=== PATIENT | female | born 1945 | race Caucasian/White ===

== ENCOUNTER 2017-04-07 06:56 | Outpatient (CLI) | payer MEDICARE, OTHER ==
--- NOTE | 2017-04-07 14:32 | RAD ---
PA AND LATERAL CHEST: History: Dyspnea. Comparison: 08-12-16 FINDINGS: Heart size is enlarged. Pacemaker is present. The lungs are clear of infiltrates. There are no signs of failure. IMPRESSION: Cardiomegaly. Transvenous pacemaker in place. POS: [facility]
== END 2017-04-07 06:57 | disposition home or self-care (01) ==
LOC: RAD 06:56
PROVIDERS: ATTEND Internal Medicine Critical Care Medicine
DX: R06.00 Dyspnea, unspecified (principal); I51.7 Cardiomegaly; Z95.0 Presence of cardiac pacemaker
CPT/HCPCS: 71020

== ENCOUNTER 2017-11-22 07:49 | Outpatient (CLI) | payer MEDICARE | END 2017-11-22 07:50 | disposition home or self-care (01) | LOC: BICMAMMO 07:49 | PROVIDERS: ATTEND Family Medicine | DX: M81.0 Age-related osteoporosis without current pathological fracture (principal); N95.9 Unspecified menopausal and perimenopausal disorder | CPT/HCPCS: 77080 ==

== ENCOUNTER 2019-05-18 15:44 | Observation (INO) | payer MEDICARE ==
--- NOTE | 2019-05-18 16:11 | RAD ---
TWO VIEW CHEST: 05/18/19 INDICATION: Shortness of breath. Weakness. COMPARISON: 04/07/17. Mild cardiomegaly is stable. Pacemaker leads were unchanged. The lung reno appear clear. No infiltr ate or vascular congestion. Subluxation of the right humeral head with widening of the subacromial sp jono. Degenerative changes at both shoulders. Degenerative changes in the spine. IMPRESSION: No acute lung process. POS: [facility]
[2019-05-18 16:58] LABS: #Basophils 0.1 thou/uL (0.0-0.2); #Eosinphils 0.1 thou/uL (0.0-0.7); #Lymphocytes 2.7 thou/uL (1.20-3.40); #Monocytes 0.5 thou/uL (0.11-0.59); #Neutrophils 6.1 thou/uL (1.40-6.50); %Basophils 0.7 % (0.0-1.0); %Eosinophils 1.6 % (0.0-10.0); %Lymphocytes 28.6 % (21.0-51.0); %Monocytes 5.1 % (0.0-10.0); %Neutrophils 64.1 % (42.0-75.0); Hemoglobin 13.2 g/dL (12.0-16.0); Mean Corpuscular HGB CONC 34.1 g/dL (32.0-36.0); Mean Corpuscular Hemoglobin 30.6 pg (27.0-31.0); Mean Corpuscular Volume 89.5 fL (78.0-98.0); Mean Platelet Volume 8.8 fL (7.4-10.4); Platelet Count 248 thou/uL (130-400); RBC Distribution Width 12.8 % (11.5-14.5); Red Blood Cell (RBC) Count 4.31 mill/uL (4.20-5.40); White Blood Cell (WBC) Count 9.6 thou/uL (4.8-10.8)
[2019-05-18 17:20] LABS: ALT (SGPT) 9 U/L (8-55); AST (SGOT) 25 U/L (5-34); Albumin 3.8 g/dL (3.4-4.8); Alkaline Phosphatase 127 U/L (40-110); Anion Gap 14 mmol/L (10-20); BUN (Urea Nitrogen) 10 mg/dL (9.8-20.1); Bilirubin, Total 1.7 mg/dL (0.2-1.2); Calc. Creatinine Clearance 0 mL/min (70-130); Calcium 9.1 mg/dL (7.8-10.44); Carbon Dioxide 26 mmol/L (23-31); Chloride 102 mmol/L (98-107); Estimated GFR-MDRD 79; Globulin 2.8 g/dL (2.4-3.5); Glucose 173 mg/dL (83-110); Potassium 3.8 mmol/L (3.5-5.1); Protein, Total 6.6 g/dL (6.0-8.3); Sodium 138 mmol/L (136-145)
[2019-05-18 17:41] LABS: CKMB 1.1 ng/mL (0-6.6)
[2019-05-18] MEDS ORDERED: Aspirin Chewable 81 MG TAB ONE (18:22)
--- NOTE | 2019-05-18 19:37 | PDOC.FPRHP ---
- History of Present Illness Chief Complaint: CP r/o History of Present Illness: Pt is a 74 yo female with PMH DM, A-fib with pacemaker followed by [facility], Diastolic/Systolic cardiac dysfunction, HLD, sleep apnea, depression, hypothyroidism who presents for a chest pain r/o, multiple week history of fatigue, malaise. She is a direct admission from [facility]. In regards to her chest pain it is dull in nature, pinpointed to her L side but states she has similar pain normally present on her R back. She denies diaphoresis, n/v, jaw pain, radiation down her R arm. She has history of prior OK. Her weigh and charge worker is Dr. Ruano who follows her for a-fib requiring a pacemaker. She did not have any pain with her initial OK. In regards to her fatigue, malaise she has been experiencing symptoms since she started jardiance about one month ago. She had increased urination and decided to d/c jardiance due to her symptoms. Her malaise/fatigue nor urinary frequency did not improve with d/c jardiance. She denies dysuria, hematuria. She states her BG has been decently controlled with home checks. - Allergies/Adverse Reactions Allergies Allergy/AdvReac Type Severity Reaction Status Date / Time adhesive Allergy Verified 11/18/16 11:16 fire ant Allergy Verified 05/18/19 20:39 Sulfa (Sulfonamide Allergy Verified 11/18/16 11:16 Antibiotics) - Home Medications Medication Instructions Recorded Confirmed Type Allopurinol 300 mg PO DAILY 07/11/16 05/18/19 History Apixaban [Eliquis] 5 mg PO BID #60 tablet 07/17/16 05/18/19 Rx Furosemide [Lasix] 40 mg PO 0900,1400 #60 tab 08/30/16 05/18/19 Rx Potassium Chloride [Klor-Con] 20 meq PO BID 10/08/16 05/18/19 History Gabapentin 300 mg PO HS 10/09/16 05/18/19 History Insulin Detemir 100 UNITS/ML 15 units SC BID 11/18/16 05/18/19 History [Levemir] Acetaminophen [Tylenol] 650 mg PO PRN PRN 05/18/19 05/18/19 History Carvedilol [Coreg] 6.25 mg PO BID 05/18/19 05/18/19 History Cholecalciferol (Vitamin D3) 5,000 unit PO DAILY 05/18/19 05/18/19 History [Vitamin D] Empagliflozin [Jardiance] 10 mg PO DAILY 05/18/19 05/18/19 History Ezetimibe [Zetia] 10 mg PO DAILY 05/18/19 05/18/19 History Oxybutynin [Ditropan] 5 mg PO DAILY 05/18/19 05/18/19 History PARoxetine HCl [Paxil] 40 mg PO DAILY 05/18/19 05/18/19 History Ranitidine HCl 150 mg PO DAILY PRN 05/18/19 05/18/19 History Sacubitril/Valsartan [Entresto 97 1 tab PO BID 05/18/19 05/18/19 History mg-103 mg Tablet] traMADol HCl [Tramadol HCl ER] 200 mg PO HS 05/18/19 05/18/19 History - History PMHx: DM, A-fib w/ pacemaker, Hypothyroid, Combined systolic/diastolic HF, sleep apnea, depression, HLD PSHx: Pacemaker FHx: non-contributory Social: denies tobacco, alcohol - Review of Systems General: denies: fever/chills, weight/appetite/sleep changes Respiratory: denies: cough, congestion Cardiovascular: reports: chest pain. denies: palpitation Gastrointestinal: denies: nausea, vomiting, diarrhea, constipation Genitourinary: reports: polyuria. denies: incontinence, dysuria Skin: denies: rashes, lesions Neurological: denies: numbness, syncope - Vital signs BP: 135/74 HR: 74 RR: 16 Tmax: 97.5 Pox: 100% on RA Wt: 101 kg - Physical Exam Constitutional: NAD, awake, alert and oriented Neck: supple, FROM Chest: no-tender to palpation, no lesions Heart: RRR, normal S1/S2, no murmurs/rubs/gallops Lungs: CTAB, no respiratory distress, good air movement Abdomen: soft, bowel sounds present -Abdomen: suprapubic tenderness Musculoskeletal: normal structure, normal tone Neurological: no focal deficit, CN II-XII intact Skin: no rash/lesions, capillary refill <2 seconds FMR H&P: Results - Labs Result Diagrams: 05/18/19 16:48 05/18/19 16:48 Lab results: WBC 9.6 thou/uL (4.8-10.8) 05/18/19 16:48 Hgb 13.2 g/dL (12.0-16.0) 05/18/19 16:48 Hct 38.6 % (36.0-47.0) 05/18/19 16:48 MCV 89.5 fL (78.0-98.0) 05/18/19 16:48 Plt Count 248 thou/uL (130-400) 05/18/19 16:48 Neutrophils % 64.1 % (42.0-75.0) 05/18/19 16:48 Sodium 138 mmol/L (136-145) 05/18/19 16:48 Potassium 3.8 mmol/L (3.5-5.1) 05/18/19 16:48 Chloride 102 mmol/L (98-107) 05/18/19 16:48 Carbon Dioxide 26 mmol/L (23-31) 05/18/19 16:48 BUN 10 mg/dL (9.8-20.1) 05/18/19 16:48 Creatinine 0.72 mg/dL (0.6-1.1) 05/18/19 16:48 Glucose 173 mg/dL (83-110) H 05/18/19 16:48 Calcium 9.1 mg/dL (7.8-10.44) 05/18/19 16:48 Total Bilirubin 1.7 mg/dL (0.2-1.2) H 05/18/19 16:48 AST 25 U/L (5-34) 05/18/19 16:48 ALT 9 U/L (8-55) 05/18/19 16:48 Alkaline Phosphatase 127 U/L (40-110) H 05/18/19 16:48 CK-MB (CK-2) 1.1 ng/mL (0-6.6) 05/18/19 16:48 B-Natriuretic Peptide 99.1 pg/mL (0-100) 05/18/19 16:48 Serum Total Protein 6.6 g/dL (6.0-8.3) 05/18/19 16:48 Albumin 3.8 g/dL (3.4-4.8) 12/26/19 16:48 - EKG Interpretation EKG: Ventricular paced - Radiology Interpretation Chest x-ray Status: image reviewed by me, report reviewed by me (No acute findings) FMR H&P: A/P - Problem List (1) Atrial fibrillation Current Visit: Yes Status: Acute Code(s): I48.91 - UNSPECIFIED ATRIAL FIBRILLATION (2) DMII (diabetes mellitus, type 2) Current Visit: No Status: Chronic Qualifiers: 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 use Diabetes mellitus complication status: with kidney complications Diabetes mellitus complication detail: with chronic kidney disease Chronic kidney disease stage : stage 2 (mild) Qualified Code(s): E11.22 - Type 2 diabetes mellitus with diabetic chronic kidney disease; N18.2 - Chronic kidney disease, stage 2 (mild) ; 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9 - HYPOTHYROIDISM, UNSPECIFIED Qualifiers: Hypothyroidism type: unspecified Qualified Code(s): E03.9 - Hypothyroidism , unspecified (7) Neuropathy Current Visit: No Status: Chronic Code(s): G62.9 - POLYNEUROPATHY, UNSPECIFIED (8) Systolic and diastolic CHF, chronic Current Visit: No Status: Chronic Code(s): I50.42 - CHRONIC COMBINED SYSTOLIC AND DIASTOLIC HRT FAIL (9) Atypical chest pain Current Visit: Yes Status: Acute Code(s): R07.89 - OTHER CHEST PAIN - Plan # Atypical Chest Pain Chest pain was subtle in nature, similar to pain she regularly has on L back, pinpointed to L chest, w/o diaphoresis or radiation. Pt seen by Dr. Ruano with a recent echocardiogram in 12/2018 revealing EF 40-45% per pt. She was started on entresto for HF. There was concern for acute heart failure but pt's BNP is 99. - trend trops, neg x 2 with downward trend - consider echo on morning # Malaise/Fatigue # Urinary Frequency Consider etiology from jardiance use causing possible urinary tract infection. Other etiologies include hypothyroid, OK. - pending UA - trops as above - pending TSH, T3, T4 # Hypothyroid - no medications at this time, pending labs above # Combined Systolic, Diastolic Cardiac Dysfunction - continue home meds - BNP 99 # DM II - held jardiance as she has not taken in a week - SSI - continue leveemir # HTN - continue home meds # HLD - Continue home meds # Hx of Anemia Hgb 13.2 # A-fib - continue home meds Fluids: PO Diet: HH VTE: home eliquis Dispo: < 48 hour stay FMR H&P: Upper Level - Plan Date/Time: 05/18/191936 ILincoln MD, have evaluated this patient and agree with findings/plan as outlined by data analysis intern resident. Pertinent changes/additions are listed here. Rebeca Howell is a 74 year old F with a PMH of CHF (Echo 2017 showed EF 50- 55%), A fib, DM2, HTN, Hypothyroidism, and APARNA who presented to the ED with c/o fluid overload sent to ED from clinic. States that earlier in the day, she developed some chest discomfort, substernal, occurring at rest, resolved on its own. Also endorses weakness/fatigue over the last couple weeks, leading to a fall. Denies any chest pain, palpitations, LOC before or after fall. Forget to take medications yesterday. Denies any hx of lung disease. Denies any fever , chills, dyspnea, n/v, abdominal pain. States that she was prescribed jardiance prior to onset of symptoms over the last couple weeks and she stopped taking it a week ago. Has noticed increased urine output since that time. In the ED, vitals were stable and wnl. BNP was 99, EKG showed V paced rhythm. Trop was 0.03. CBC and CMP wnl. CXR showed no acute findings. On exam, patient had clear lungs, no lower extremity edema. RRR no murmurs. Patient admitted to obs tele for atypical chest pain r/o ACS. Will trend trops. Continue home medications for chronic medical problems. Checking UA as UTI could be contributing to majority of symptoms. Checking thyroid panel. Anticipate hospital stay <48 hrs. Please see data analysis intern note above for full H&P, which I have reviewed and agree with.
[2019-05-18] MEDS ORDERED: Acetaminophen 325 MG TAB PO PRN (20:05)
[2019-05-18] MEDS ORDERED: Ondansetron PF 4 MG/2 ML Vial IVP PRN (20:05)
[2019-05-18] MEDS ORDERED: Ondansetron ODT 4 MG TAB SL PRN (20:05)
[2019-05-18 20:32] LABS: Troponin I 0.012 ng/mL (< 0.028)
[2019-05-18 20:52] VITALS: BMI 39.4
[2019-05-18] MEDS ORDERED: Non-Formulary Item 1 EACH (Insulin Detemir 100 Units/Ml [Levemir] 16 UNITS) SC SCH (21:00)
[2019-05-18] MEDS ORDERED: Ezetimibe 10 MG TAB PO SCH (21:00)
[2019-05-18] MEDS ORDERED: Gabapentin 300 MG CAP PO SCH (21:00)
--- NOTE | 2019-05-18 21:26 | PDOC.BPN ---
Addendum - Attending - Attending Attestation Date/Time: 05/18/192124 I personally evaluated the patient and discussed the management with Dr. Vera and Vladimir. H&P is pending. I agree with the History, Examination, Assessment and Plan as discussed. Cardiac eval for fatigue and FLORES as well thyroid.
[2019-05-18 21:28] LABS: Free T4 (Free Thyroxine) 1.12 ng/dL (0.70-1.48)
[2019-05-18] MEDS: Carvedilol 6.25 MG TAB PO SCH (21:42)
[2019-05-18] MEDS: Apixaban 5 MG TAB PO SCH (21:43)
[2019-05-18] MEDS: Insulin Glargine 16 UNITS in Pre-Filled Syringe 1 EACH SC SCH (21:43)
[2019-05-18] MEDS ORDERED: Potassium Chloride 20 MEQ TAB PO SCH (21:45)
[2019-05-18] MEDS ORDERED: HumaLOG 300 UNITS/3 ML VIAL SC PRN (22:49)
[2019-05-18] MEDS ORDERED: Dextrose 50% Abboject 50 ML SYRINGE SLOW IVP PRN (22:49)
[2019-05-18] MEDS ORDERED: Dextrose 5% in Water 1,000 ML IV PRN (22:49)
[2019-05-18 22:56] LABS: Bacteria/HPF 4+ HPF (None Seen); Bilirubin Negative (Negative); Blood, Urine Negative (Negative); Clarity Turbid (Clear); Glucose, Urine (Dipstick) Normal (Negative); Leukocyte 75 Leu/uL (Negative); Nitrite Negative (Negative); Protein, Urine (Dipstick) 20 mg/dL (Neg-Trace); Urobilinogen Normal mg/dL (Less than 2)
[2019-05-18 23:31] LABS: Troponin I Less than 0.010 ng/mL (< 0.028)
[2019-05-19 05:29] LABS: #Basophils 0.1 thou/uL (0.0-0.2); #Eosinphils 0.2 thou/uL (0.0-0.7); #Lymphocytes 2.9 thou/uL (1.20-3.40); #Monocytes 0.6 thou/uL (0.11-0.59); %Basophils 0.9 % (0.0-1.0); %Eosinophils 2.1 % (0.0-10.0); %Lymphocytes 37.9 % (21.0-51.0); %Monocytes 7.1 % (0.0-10.0); Hemoglobin 11.9 g/dL (12.0-16.0); Mean Corpuscular HGB CONC 34.7 g/dL (32.0-36.0); Mean Corpuscular Hemoglobin 31.1 pg (27.0-31.0); Mean Corpuscular Volume 89.6 fL (78.0-98.0); Mean Platelet Volume 8.6 fL (7.4-10.4); Platelet Count 211 thou/uL (130-400); RBC Distribution Width 12.9 % (11.5-14.5); Red Blood Cell (RBC) Count 3.84 mill/uL (4.20-5.40); White Blood Cell (WBC) Count 7.8 thou/uL (4.8-10.8)
[2019-05-19 05:44] LABS: Anion Gap 11 mmol/L (10-20); BUN (Urea Nitrogen) 13 mg/dL (9.8-20.1); Calc. Creatinine Clearance 105 mL/min (70-130); Calcium 8.6 mg/dL (7.8-10.44); Carbon Dioxide 27 mmol/L (23-31); Chloride 102 mmol/L (98-107); Estimated GFR-MDRD 73; Glucose 205 mg/dL (83-110); Potassium 3.2 mmol/L (3.5-5.1); Sodium 137 mmol/L (136-145)
--- NOTE | 2019-05-19 05:51 | PDOC.FM ---
- Subjective Subjective: Pt denies any further chest pain. Pt states she has lower abdominal pain. Denies dysuria or hematuria - Objective MAR Reviewed: Yes Vital Signs & Weight: Vital Signs (12 hours) Temp Pulse Resp BP BP BP BP 05/19/19 03:55 98.1 F 72 19 130/61 05/18/19 21:42 152/78 H 05/18/19 20:40 71 152/78 H 134/64 144/69 H 05/18/19 19:45 98.3 F 64 17 180/87 H Pulse Ox 05/19/19 03:55 96 05/18/19 21:42 05/18/19 20:40 05/18/19 19:45 99 Weight Weight 107.501 kg I&O: 05/17/19 05/18/19 05/19/19 06:59 06:59 06:59 Intake Total 240 Output Total 300 Balance -60 Result Diagrams: 05/19/19 05:08 05/19/19 05:08 Phys Exam - Physical Examination Constitutional: NAD HEENT: PERRLA, moist MMs Neck: no nodes, no JVD, supple, full ROM Respiratory: no wheezing, no rales, no rhonchi, clear to auscultation bilateral Cardiovascular: RRR, no significant murmur, no rub Gastrointestinal: soft, no distention, positive bowel sounds suprapubic tenderness to palpation. Neurological: non-focal, moves all 4 limbs Psychiatric: normal affect, A&O x 3 Skin: no rash, normal turgor, cap refill <2 seconds Dx/Plan (1) UTI (urinary tract infection) Status: Acute Qualifiers: Urinary tract infection type: acute cystitis (2) Atypical chest pain Code(s): R07.89 - OTHER CHEST PAIN Status: Acute (3) DMII (diabetes mellitus, type 2) Status: Chronic Qualifiers: Diabetes mellitus correction insulin use: with slate mixer use Diabetes mellitus complication status: with kidney complications Diabetes mellitus complication detail: with chronic kidney disease Chronic kidney disease stage : stage 2 (mild) Qualified Code(s): E11.22 - Type 2 diabetes mellitus with diabetic chronic kidney disease; N18.2 - Chronic kidney disease, stage 2 (mild) ; Z79.4 - MCC (current) use of insulin (4) HTN (hypertension) Code(s): I10 - ESSENTIAL (PRIMARY) HYPERTENSION Status: Chronic Qualifiers: Hypertension type: essential hypertension Qualified Code(s): I10 - Essential (primary) hypertension (5) Hypothyroidism Code(s): E03.9 - HYPOTHYROIDISM, UNSPECIFIED Status: Chronic Qualifiers: Hypothyroidism type: unspecified Qualified Code(s): E03.9 - Hypothyroidism , unspecified (6) Systolic and diastolic CHF, chronic Code(s): I50.42 - CHRONIC COMBINED SYSTOLIC AND DIASTOLIC HRT FAIL Status: Chronic - Plan Plan: # Atypical Chest Pain, improved. Chest pain was subtle in nature, similar to pain she regularly has on L back, pinpointed to L chest, w/o diaphoresis or radiation. Pt seen by Dr. Ruano with a recent echocardiogram in 12/2018 revealing EF 40-45% per pt. She was started on entresto for HF. There was concern for acute heart failure but pt's BNP is 99. - trend trops, neg x 3 with downward trend # Malaise/Fatigue # Urinary Frequency and suprapubic tenderness 2/2 UTI Consider etiology from jardiance use causing possible urinary tract infection. Other etiologies include hypothyroid, MS. - UA: many squamous cells, but leuk esterase +, nitirite -. Treated with 1 g Rocephin IVPB. - trops as above - Normal thyroid studies. TSH, T3, T4 # Hypothyroid - no medications at this time, normal TSH, T4 and T3. # Combined Systolic, Diastolic Cardiac Dysfunction - continue home meds - BNP 99 # DM II - held jardiance as she has not taken in a week - SSI - continue levemir # HTN - continue home meds # HLD - Continue home meds # Hx of Anemia Hgb 13.2 # A-fib - continue home meds Fluids: PO Diet: HH VTE: home eliquis Dispo: < 48 hour stay Addendum - Attending - Attending Attestation Date/Time: 05/19/19 1019 I personally evaluated the patient and discussed the management with Dr. Butt. I agree with the History, Examination, Assessment and Plan documented above with any addition or exceptions noted below. The patient is has suprapubic tenderness and abnormal UA. Treating uti with rocephin and will transition to po antibiotics on discharge. She is chest pain free. Will f/u with cardiology outpt.
[2019-05-19] MEDS ORDERED: cefTRIAXone\\ROCEPHIN 1 GM in Sodium Chloride 0.9% 100 ML IVPB SCH (07:46)
[2019-05-19 08:20] VITALS: TEMP 97.9
[2019-05-19] MEDS: Insulin Glargine 16 UNITS in Pre-Filled Syringe 1 EACH SC SCH (08:52)
[2019-05-19] MEDS: Apixaban 5 MG TAB PO SCH (08:53)
[2019-05-19] MEDS: Carvedilol 6.25 MG TAB PO SCH (08:53)
[2019-05-19] MEDS ORDERED: Oxybutynin 5 MG TAB PO SCH (09:00)
[2019-05-19] MEDS ORDERED: Potassium Chloride 20 MEQ TAB PO SCH (09:00)
[2019-05-19] MEDS ORDERED: Tramadol Hcl [Tramadol Hcl Er] 200 MG PO SCH (09:00)
[2019-05-19] MEDS ORDERED: Aspirin 325 mg Enteric Coated Tablet PO SCH (09:00)
[2019-05-19] MEDS ORDERED: FLU VACC TS2019-20(65YR UP)/PF 180 MCG/0.5 ML SYRINGE IM ONE (09:00)
[2019-05-19] MEDS ORDERED: Furosemide 40 MG TAB PO SCH (09:00)
[2019-05-19] MEDS ORDERED: Sacubitril 49 MG/Valsartan 51 MG TABLET PO SCH ×2 (09:00)
[2019-05-19] MEDS ORDERED: traMADol HCl 50 MG TAB PO SCH (09:00)
[2019-05-19] MEDS ORDERED: PARoxetine 20 MG TAB PO SCH (09:00)
[2019-05-19] MEDS ORDERED: Allopurinol 300 MG TAB PO SCH (09:00)
[2019-05-19 10:35] VITALS: BP 132/60
--- NOTE | 2019-05-19 11:48 | DIS ---
DATE OF ADMISSION: 05/18/2019 DATE OF DISCHARGE: 05/19/2019 RESIDENT: Lacey Butt DO Admitting attending: Dr. Subramanian DISCHARGE ATTENDING: Susie Ratliff MD CONSULTS: None. PROCEDURES: None. DIAGNOSES: 1. Atypical chest pain. 2. Malaise/fatigue. 3. Acute urinary tract infection. 4. Hypothyroidism. 5. Combined systolic and diastolic heart failure. 6. Diabetes mellitus, type 2. 7. Hypertension. 8. Hyperlipidemia. 9. History of anemia. 10. Atrial fibrillation. DISCHARGE MEDICATIONS: 1. Keflex 500 mg p.o. q.12 hours for 5 days. 2. Tylenol 650 mg p.o. p.r.n. 3. Allopurinol 300 mg p.o. daily. 4. Eliquis 5 mg p.o. b.i.d. 5. Aspirin 325 p.o. daily. 6. Coreg 6.25 mg p.o. b.i.d. 7. Vitamin D 5000 units p.o. daily. 8. Jardiance 10 mg p.o. daily. 9. Zetia 10 mg p.o. daily. 10. Lasix 40 mg p.o. b.i.d. 11. Gabapentin 300 mg p.o. at bedtime. 12. Humalog 10 units subcu b.i.d. a.c. 13. Detemir 15 units subcu b.i.d. 14. Oxybutynin 5 mg p.o. daily. 15. Paxil 40 mg p.o. daily. 16. Klor-Con 20 mEq p.o. b.i.d. 17. Ranitidine 150 mg p.o. daily p.r.n. 18. Entresto 1 tablet p.o. b.i.d. 19. Tramadol 200 mg p.o. at bedtime. No discontinued medications. HISTORY OF PRESENT ILLNESS AND HOSPITAL COURSE: Ms. Howell is a 74-year-old female with a history of diastolic and systolic heart failure, status post pacemaker placement; diabetes mellitus type 2 with neuropathy; hypothyroidism; and atrial fibrillation; who presented to [facility] on 05/18 with atypical chest pain and feeling very weak and for the last two weeks, that has gradually worsened. She was sent over to [place] for further evaluation and treatment. The patient's workup was negative for fluid overload in the setting of heart failure as well as acute coronary syndrome. The patient's troponins were initially 0.030, was downtrended to less than 0.010. Chest x-ray showed no acute cardiopulmonary findings. EKG with biventricular pace, rate in the 70s. Creatinine was 0.72, TSH was 1.7, free T4 of 1.12, free T3 of 2.44, all within normal limits. The patient's urine was leukocyte esterase positive with many squamous cells. She also has suprapubic tenderness on exam with urinary frequency. She was treated with 1 g of Rocephin while at the hospital and sent home with 5 days of b.i.d. Keflex 500 mg to take outpatient. The patient's weakness is thought to be from the acute cystitis and we will follow up outpatient to see if she gained her strength back after being treated with antibiotic therapy. The patient's dental assistant is Dr. Ruano and it is our recommendation that she follow up with Dr. Ruano outpatient for possible stress test and further cardiac workup. The patient did not have any further chest pain once admitted to the hospital. DISPOSITION: The patient was stable upon discharge back home. DISCHARGE INSTRUCTIONS: 1. Location: To home. 2. Diet: Heart healthy and consistent carb with fluid restriction of less than 1800 mL a day. 3. Activity: As tolerated. 4. Followup: Follow up with primary care physician, Dr. Parikh at [facility] in 1 week's time and follow up with Dr. Ruano, dental assistant in 10 days for further cardiac workup. Job ID: [id number] [facility]
== END 2019-05-19 11:30 | disposition home or self-care (01) ==
LOC: ERS 15:44 → 2SW 19:45
PROVIDERS: ADMIT Family Medicine; ATTEND Family Medicine
DX: R07.89 Other chest pain (principal); I13.0 Hypertensive heart and chronic kidney disease with heart failure and stage 1 through stage 4 chronic kidney disease, or unspecified chronic kidney disease; E11.22 Type 2 diabetes mellitus with diabetic chronic kidney disease; N18.2 Chronic kidney disease, stage 2 (mild); I50.40 Unspecified combined systolic (congestive) and diastolic (congestive) heart failure; I48.91 Unspecified atrial fibrillation; E03.9 Hypothyroidism, unspecified; E78.5 Hyperlipidemia, unspecified; F32.9 Major depressive disorder, single episode, unspecified; G47.30 Sleep apnea, unspecified; M10.9 Gout, unspecified; N39.0 Urinary tract infection, site not specified; Z79.01 Long term (current) use of anticoagulants; Z79.4 Long term (current) use of insulin; Z79.82 Long term (current) use of aspirin; Z79.899 Other long term (current) drug therapy; Z88.2 Allergy status to sulfonamides; Z91.038 Other insect allergy status; Z91.048 Other nonmedicinal substance allergy status; Z95.0 Presence of cardiac pacemaker
CPT/HCPCS: 36415; 36416; 71046; 80048; 80053; 81001; 82010; 82553; 83880; 84439; 84443; 84481; 84484; 85025; 87086; 93005; 94760; 96365; G0378; J0696; J1815; J3490

== ENCOUNTER 2019-08-17 12:30 | Inpatient (IN) | payer MEDICARE ==
[2019-08-17] MEDS ORDERED: Ondansetron ODT 4 MG TAB ONE (12:38)
[2019-08-17 13:05] LABS: #Basophils 0.1 thou/uL (0.0-0.2); #Eosinphils 0.2 thou/uL (0.0-0.7); #Lymphocytes 3.5 thou/uL (1.20-3.40); #Monocytes 0.5 thou/uL (0.11-0.59); #Neutrophils 7.4 thou/uL (1.40-6.50); %Basophils 0.8 % (0.0-1.0); %Eosinophils 1.4 % (0.0-10.0); %Lymphocytes 30.2 % (21.0-51.0); %Monocytes 4.6 % (0.0-10.0); %Neutrophils 63.1 % (42.0-75.0); Hemoglobin 15.2 g/dL (12.0-16.0); Mean Corpuscular HGB CONC 33.7 g/dL (32.0-36.0); Mean Corpuscular Hemoglobin 30.1 pg (27.0-31.0); Mean Corpuscular Volume 89.3 fL (78.0-98.0); Mean Platelet Volume 9.2 fL (7.4-10.4); Platelet Count 287 thou/uL (130-400); RBC Distribution Width 13.5 % (11.5-14.5); Red Blood Cell (RBC) Count 5.06 mill/uL (4.20-5.40); White Blood Cell (WBC) Count 11.7 thou/uL (4.8-10.8)
[2019-08-17 13:24] LABS: ALT (SGPT) 11 U/L (8-55); AST (SGOT) 23 U/L (5-34); Alkaline Phosphatase 149 U/L (40-110); Anion Gap 17 mmol/L (10-20); BUN (Urea Nitrogen) 11 mg/dL (9.8-20.1); Bilirubin, Total 1.2 mg/dL (0.2-1.2); Calc. Creatinine Clearance 0 mL/min (70-130); Calcium 10.1 mg/dL (7.8-10.44); Carbon Dioxide 28 mmol/L (23-31); Chloride 98 mmol/L (98-107); Estimated GFR-MDRD 59; Globulin 3.8 g/dL (2.4-3.5); Glucose 254 mg/dL (83-110); Potassium 3.1 mmol/L (3.5-5.1); Protein, Total 7.8 g/dL (6.0-8.3); Sodium 140 mmol/L (136-145)
--- NOTE | 2019-08-17 13:41 | RAD ---
PORTABLE CHEST: HISTORY: Shortness of breath. COMPARISON: 05/18/2019. FINDINGS: Cardiomegaly again noted with dual-lead pacemaker device. No evidence of focal infiltrate. No evide nce of vascular congestion or edema. No significant effusion. No interval change apparent. IMPRESSION: No acute finding or significant interval change. POS: [facility]
[2019-08-17] MEDS ORDERED: Iopamidol 370 76% 100 ML VIAL ONE (13:44)
[2019-08-17 14:26] LABS: Bilirubin Negative (Negative); Blood, Urine Negative (Negative); Clarity Clear (Clear); Glucose, Urine (Dipstick) Greater than 1000 mg/dL (Negative); Leukocyte Negative Leu/uL (Negative); Nitrite Negative (Negative); Protein, Urine (Dipstick) Negative (Neg-Trace); Urobilinogen Normal mg/dL (Less than 2)
--- NOTE | 2019-08-17 15:01 | CT ---
ABDOMEN AND PELVIC CT SCAN WITH IV CONTRAST: HISTORY: Abdominal pain, shortness of breath, and vomiting. COMPARISON: CT angiogram chest 11/17/2016 and abdominal ultrasound 07/18/2016. FINDINGS: The lung bases appear clear. Small hiatal hernia. The liver appears unremarkable. Several gallston es are noted within the gallbladder without abnormal gallbladder wall thickening or pericholecystic a bnormal fat stranding or ductal dilatation. The patient did have multiple gallstones on the prior 17 ultrasound study. The pancreas, spleen, and adrenal glands appear unremarkable. The kidneys show no evidence for renal hydronephrosis or solid or cystic renal mass. No evidence for large or small bowel obstruction. There are a few scattered colonic diverticulosis without acute diverticulitis. N o CT evidence for acute appendicitis. No abscess or abnormal fluid collection. Previously noted sofia ateral pleural effusions and chest congestion seen on the prior CT scan have resolved. IMPRESSION: 1. Small hiatal hernia. 2. Multiple gallstones without CT evidence for acute cholecystitis. 3. No evidence for other significant acute process. POS: [facility]
--- NOTE | 2019-08-17 15:58 | ULT ---
GALLBLADDER ULTRASOUND: HISTORY: Right upper quadrant and epigastric pain. COMPARISON: 07/18/2016. FINDINGS: Coarse liver echogenicity, evidence for fatty change. The gallbladder demonstrates multiple mobile g allstones with shadowing. No evidence for abnormal gallbladder wall thickening or pericholecystic fl uid. Visualized pancreas and right kidney are unremarkable. IMPRESSION: 1. Multiple cholelithiasis without evidence for acute cholecystitis. 2. Heterogeneous liver echogenicity, evidence for some fatty change. POS: [facility]
--- NOTE | 2019-08-17 16:43 | PDOC.FPRHP ---
- History of Present Illness Chief Complaint: nausea, vomiting, indigestion History of Present Illness: Rebeca Howell is a 74 year old F with a PMH of A fib, HTN, DM2, Hypothyroidism who presented to the ED with a 1-2 day history of indigestion, nausea and a couple episodes of vomiting today. She has been dealing with indigestion over the last 5-6 weeks. She has had decreased appetite over that time and she has lost about 15-20 lbs over the last 5-6 weeks. Normally has RUQ abd pain after eating large meals. She has had problems with indigestion in the past and she had a HIDA scan that was normal about 15 years ago. She has been taken ranitidine which helps. Denies any fever, chills, chest pain, dyspnea, palpitations, sore throat, LE edema. Endorses occasional diarrhea. She has a history of EVELYN but does not use CPAP machine. ED Course: In the ED, she was given 4 mg of zofran and 1 L NS. - Allergies/Adverse Reactions Allergies Allergy/AdvReac Type Severity Reaction Status Date / Time adhesive Allergy Verified 08/12/19 04:42 fire ant Allergy Verified 08/12/19 04:42 Sulfa (Sulfonamide Allergy Verified 08/12/19 04:42 Antibiotics) - Home Medications Medication Instructions Recorded Confirmed Type Allopurinol 300 mg PO DAILY 07/11/16 08/17/19 History Apixaban [Eliquis] 5 mg PO BID #60 tablet 07/17/16 08/17/19 Rx Furosemide [Lasix] 40 mg PO 0900,1400 #60 tab 08/30/16 08/17/19 Rx Potassium Chloride [Klor-Con] 20 meq PO BID 10/08/16 08/17/19 History Gabapentin 300 mg PO HS 10/09/16 08/17/19 History Insulin Detemir 100 UNITS/ML 16 units SC BID 11/18/16 08/17/19 History [Levemir] Carvedilol [Coreg] 6.25 mg PO BID 05/18/19 08/17/19 History Cholecalciferol (Vitamin D3) 5,000 unit PO DAILY 05/18/19 08/17/19 History [Vitamin D] Empagliflozin [Jardiance] 10 mg PO DAILY 05/18/19 08/17/19 History Ezetimibe [Zetia] 10 mg PO DAILY 05/18/19 08/17/19 History Oxybutynin [Ditropan] 5 mg PO DAILY 05/18/19 08/17/19 History PARoxetine HCl [Paxil] 40 mg PO DAILY 05/18/19 08/17/19 History Sacubitril/Valsartan [Entresto 97 1 tab PO BID 05/18/19 08/17/19 History mg-103 mg Tablet] traMADol HCl [Tramadol HCl ER] 200 mg PO HS 05/18/19 08/17/19 History HumaLOG 0 unit SC QID PRN 08/17/19 08/17/19 History - History PMHx: DM, A-fib w/ pacemaker, Hypothyroid, Combined systolic/diastolic HF, sleep apnea, depression, HLD PSHx: Pacemaker in 2017, knee surgeries, tonsillectomy FHx: Mother and father had DM2, HTN, HLD Social: denies tobacco, alcohol, drug use - Review of Systems General: reports: weight/appetite/sleep changes. denies: fever/chills, night sweats, fatigue Eyes: denies: eye pain, vision changes ENT: denies: nasal congestion, rhinorrhea Respiratory: denies: cough, congestion, shortness of breath Cardiovascular: denies: chest pain, palpitation, edema Gastrointestinal: reports: nausea, vomiting, diarrhea, abdominal pain Genitourinary: denies: dysuria, polyuria Skin: denies: rashes, lesions Musculoskeletal: denies: pain, tenderness, swelling Neurological: reports: weakness. denies: syncope, seizure Psychological: denies: anxiety, depression - Vital signs BP: 147/84 HR: 70 RR: 18 Tmax: Pox: 100% on RA Wt: 102 kg - Physical Exam Constitutional: NAD, awake, alert and oriented, well developed HEENT: normocephalic and atraumatic, PERRLA, EOMI, grossly normal vision, grossly normal hearing, MMM Neck: supple, FROM, no JVD Heart: RRR, normal S1/S2, no murmurs/rubs/gallops Lungs: CTAB, no respiratory distress, good air movement, no rales/rhonchi Abdomen: soft, bowel sounds present, no masses/distention -Abdomen: mild TTP in RUQ, + Rivera, no guarding/rigidity Musculoskeletal: normal structure, normal tone, ROM grossly normal Neurological: no focal deficit, CN II-XII intact Skin: no rash/lesions, good turgor, capillary refill <2 seconds Psychiatric: normal mood and affect, good judgment and insight, intact recent and remote memory FMR H&P: Results - Labs Result Diagrams: 08/17/19 12:49 08/17/19 12:49 Lab results: WBC 11.7 thou/uL (4.8-10.8) H 08/17/19 12:49 Hgb 15.2 g/dL (12.0-16.0) 08/17/19 12:49 Hct 45.2 % (36.0-47.0) 08/17/19 12:49 MCV 89.3 fL (78.0-98.0) 08/17/19 12:49 Plt Count 287 thou/uL (130-400) 08/17/19 12:49 Neutrophils % 63.1 % (42.0-75.0) 08/17/19 12:49 Sodium 140 mmol/L (136-145) 08/17/19 12:49 Potassium 3.1 mmol/L (3.5-5.1) L 08/17/19 12:49 Chloride 98 mmol/L (98-107) 08/17/19 12:49 Carbon Dioxide 28 mmol/L (23-31) 08/17/19 12:49 BUN 11 mg/dL (9.8-20.1) 08/17/19 12:49 Creatinine 0.93 mg/dL (0.6-1.1) 08/17/19 12:49 Glucose 254 mg/dL (83-110) H 08/17/19 12:49 Lactic Acid 2.0 mmol/L (0.5-2.2) 08/17/19 13:53 Calcium 10.1 mg/dL (7.8-10.44) 08/17/19 12:49 Total Bilirubin 1.2 mg/dL (0.2-1.2) 08/17/19 12:49 AST 23 U/L (5-34) 08/17/19 12:49 ALT 11 U/L (8-55) 08/17/19 12:49 Alkaline Phosphatase 149 U/L (40-110) H 08/17/19 12:49 B-Natriuretic Peptide 34.8 pg/mL (0-100) 08/17/19 13:53 Serum Total Protein 7.8 g/dL (6.0-8.3) 08/17/19 12:49 Albumin 4.0 g/dL (3.4-4.8) 08/17/19 12:49 Lipase 7 U/L (8-78) L 08/17/19 13:53 Urine Ketones Trace mg/dL (Negative) A 08/17/19 14:06 Urine Blood Negative (Negative) 08/17/19 14:06 Urine Nitrite Negative (Negative) 08/17/19 14:06 Ur Leukocyte Esterase Negative Sandra/uL (Negative) 08/17/19 14:06 - EKG Interpretation EKG: Vpaced FMR H&P: A/P - Problem List (1) Cholelithiasis Current Visit: Yes Status: Acute Code(s): K80.20 - CALCULUS OF GALLBLADDER W /O CHOLECYSTITIS W/O OBSTRUCTION (2) Atrial fibrillation Current Visit: No Status: Acute Code(s): I48.91 - UNSPECIFIED ATRIAL FIBRILLATION (3) Hypokalemia Current Visit: No Status: Acute Code(s): E87.6 - HYPOKALEMIA (4) Chronic low back pain Current Visit: No Status: Chronic Code(s): M54.5 - LOW BACK PAIN; G89.29 - OTHER CHRONIC PAIN (5) DMII (diabetes mellitus, type 2) Current Visit: No Status: Chronic Qualifiers: Diabetes mellitus half-way insulin use: 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 Diabetes mellitus complication status: with kidney complications Diabetes mellitus complication detail: with chronic kidney disease Chronic kidney disease stage : stage 2 (mild) Qualified Code(s): E11.22 - Type 2 diabetes mellitus with diabetic chronic kidney disease; N18.2 - Chronic kidney disease, stage 2 (mild) ; Z79.4 - FDC (current) use of insulin (6) Dyslipidemia Current Visit: No Status: Chronic Code(s): E78.5 - HYPERLIPIDEMIA, UNSPECIFIED (7) Gout Current Visit: No Status: Chronic Code(s): M10.9 - GOUT, UNSPECIFIED Qualifiers: Gout site: unspecified site Gout etiology: unspecified cause Chronicity: unspecified Qualified Code(s): M10.9 - Gout, unspecified (8) HTN (hypertension) Current Visit: No Status: Chronic Code(s): I10 - ESSENTIAL (PRIMARY) HYPERTENSION Qualifiers: Hypertension type: essential hypertension Qualified Code(s): I10 - Essential (primary) hypertension (9) Hypothyroidism Current Visit: No Status: Chronic Code(s): E03.9 - HYPOTHYROIDISM, UNSPECIFIED Qualifiers: Hypothyroidism type: unspecified Qualified Code(s): E03.9 - Hypothyroidism , unspecified (10) Systolic and diastolic CHF, chronic Current Visit: No Status: Chronic Code(s): I50.42 - CHRONIC COMBINED SYSTOLIC AND DIASTOLIC HRT FAIL - Plan Rebeca Howell is a 74 year old F with a PMH of A fib, HTN, DM2, Hypothyroidism who presented to the ED with a 1-2 day history of indigestion, nausea and a couple episodes of vomiting today. 1. Cholelithiasis with Intractable Nausea & Vomiting Pt endorses decreased PO intake and 20 lb weight loss in 6-8 weeks * CT Abdomen: Small hiatal hernia, multiple gallstones * Gallbladder US: cholelithiasis * In ED: * Received Zofran and 1L NS * Continue Zofran prn for nausea and IVF 100 NS * UA: Glucose-1000, Trace Ketones * HIDA scan 17 years ago * Consider Gen Surg consult if symptoms do not resolve * Advance diet as tolerated * Dietitian consulted for weight loss 2. Hypokalemia K: 3.1 * Will replace * Continue home medication ok Potassium 3. HF Combined Systolic/Diastolic * Aids Counselor: Bindu * Continue home medications * Strict I&Os * Daily weights * SOB: ongoing for 3 years * No orthopnea, PND 4. Elevated Alk Phos Alk Phos: 149 * Will monitor with CMP 5. DMII Continue home medications * A * SSI * Accuchecks ACHS 6. Hx of EVELYN and does not wear cpap * Currently on 2L @ 99% * Will wean O2 as tolerated Code Status: Full Diet: CC, Advance as tolerated IVF: NS @100 Activity: Ambulate with Assist, PT & OT consulted PCP: Scarlet Dispo: Tele obs, LOS <48H for intractable nausea and vomiting. Will monitor with fluid resuscitation for symptom resolution. FMR H&P: Upper Level - Plan Date/Time: 08/17/19 1642 Lincoln Carver MD, have evaluated this patient and agree with findings/plan as outlined by education intern resident. Pertinent changes/additions are listed here. Rebeca Howell is a 74 year old F with a PMH of DM2, A fib with pacemaker, HTN, HLD, CHF, untreated EVELYN who presented to the ED with a 2 day history of nausea, vomiting and RUQ abdominal pain. Vomiting and nausea started this morning. States that for the last 5-6 weeks she has been dealing with indigestion, often improved with ranitidine, that is worse after eating large meals. She denies any fever, chills, chest pain, dysuria, vision changes, LE edema, orthopnea. She has had about a 15-20 lb weight loss over this time period. She has not been eating very much. In the ED, vitals were BP 147/84, HR 70, RR 18, T 97.6, O2 sat 100% on RA. Labs were WBC 11.7, Hg 15.2, BNP 34.8, UA showed >1000 glucose, Lactic acid 2.0, Trop 0.01, Na 140, K 3.1, BUN 11, Cr 0.93, Gluc 254. CTA chest showed gallstones, otherwise negative. RUQ US showed cholelithiasis, no evidence for cholecystitis and fatty liver. She was given 1 L NS and 4 mg zofran in the ED, which improved her nausea. We were called to admit for intractible nausea and cholelithiasis. Admit to tele obs. Will continue mIVFs and zofran. Advance diet as tolerated. Repeat labs. Pain and nausea improved in ED. Anticipate hospital stay <48 hours. May notify GI tomorrow to set up outpatient follow up. Please see education intern note above for full H&P, which I have reviewed and agree with. Code status: Full Code
[2019-08-17] MEDS ORDERED: HumaLOG 300 UNITS/3 ML VIAL SC PRN ×2 (17:08)
[2019-08-17] MEDS ORDERED: Ondansetron PF 4 MG/2 ML Vial IVP PRN (17:08)
[2019-08-17] MEDS ORDERED: Senokot S 8.6-50 MG TAB PO PRN (17:08)
[2019-08-17] MEDS ORDERED: Dextrose 50% Abboject 50 ML SYRINGE SLOW IVP PRN (17:08)
[2019-08-17] MEDS ORDERED: Dextrose 5% in Water 1,000 ML IV PRN (17:08)
[2019-08-17] MEDS ORDERED: Acetaminophen 650 MG Suppository PR PRN (17:08)
[2019-08-17] MEDS ORDERED: Aspirin Chewable 81 MG TAB ONE (17:53)
[2019-08-17] MEDS ORDERED: Fentanyl 100 MCG/2 ML VIAL ONE (17:54)
[2019-08-17 17:55] LABS: Troponin I 0.098 ng/mL (< 0.028)
[2019-08-17] MEDS ORDERED: Potassium Chloride 20 MEQ TAB PO SCH (18:00)
[2019-08-17] MEDS ORDERED: FLU VACC TS2019-20(65YR UP)/PF 180 MCG/0.5 ML SYRINGE IM ONE (20:45)
[2019-08-17] MEDS ORDERED: Non-Formulary Item 1 EACH (Insulin Detemir 100 Units/Ml [Levemir] 16 UNITS) SC SCH (21:00)
[2019-08-17] MEDS ORDERED: TRAMADOL HCL 200 MG PO SCH (21:00)
[2019-08-17] MEDS ORDERED: Carvedilol 6.25 MG TAB PO SCH (21:00)
[2019-08-17 21:02] LABS: Troponin I 0.159 ng/mL (< 0.028)
[2019-08-17] MEDS: Apixaban 5 MG TAB PO SCH (21:10)
[2019-08-17] MEDS: Gabapentin 300 MG CAP PO SCH (21:10)
[2019-08-17] MEDS: Insulin Glargine 16 UNITS in Pre-Filled Syringe 1 EACH SC SCH (21:10)
[2019-08-17] MEDS: Sacubitril 49 MG/Valsartan 51 MG TABLET PO SCH (21:11)
[2019-08-17] MEDS: Famotidine 20 MG TAB PO SCH (21:11)
[2019-08-17] MEDS: Sodium Chloride 0.9% 1,000 ML IV SCH (21:14)
[2019-08-17] MEDS ORDERED: Carvedilol 3.125 MG TAB PO SCH (22:15)
[2019-08-17] MEDS ORDERED: Ezetimibe 10 MG TAB PO SCH (22:30)
[2019-08-17] MEDS: traMADol HCl 50 MG TAB PO PRN (22:33)
[2019-08-17] MEDS: Acetaminophen 325 MG TAB PO PRN (22:33)
[2019-08-18 00:23] LABS: Troponin I 0.217 ng/mL (< 0.028)
[2019-08-18 05:41] LABS: #Basophils 0.1 thou/uL (0.0-0.2); #Eosinphils 0.1 thou/uL (0.0-0.7); #Lymphocytes 2.9 thou/uL (1.20-3.40); #Monocytes 0.4 thou/uL (0.11-0.59); #Neutrophils 4.6 thou/uL (1.40-6.50); %Basophils 0.9 % (0.0-1.0); %Eosinophils 1.8 % (0.0-10.0); %Lymphocytes 36.2 % (21.0-51.0); %Monocytes 4.8 % (0.0-10.0); %Neutrophils 56.3 % (42.0-75.0); Hemoglobin 13.3 g/dL (12.0-16.0); Mean Corpuscular HGB CONC 34.2 g/dL (32.0-36.0); Mean Corpuscular Volume 90.6 fL (78.0-98.0); Mean Platelet Volume 9.4 fL (7.4-10.4); Platelet Count 219 thou/uL (130-400); RBC Distribution Width 13.6 % (11.5-14.5); Red Blood Cell (RBC) Count 4.28 mill/uL (4.20-5.40); White Blood Cell (WBC) Count 8.1 thou/uL (4.8-10.8)
[2019-08-18 06:03] LABS: ALT (SGPT) 7 U/L (8-55); AST (SGOT) 21 U/L (5-34); Albumin 3.1 g/dL (3.4-4.8); Alkaline Phosphatase 115 U/L (40-110); Anion Gap 15 mmol/L (10-20); BUN (Urea Nitrogen) 9 mg/dL (9.8-20.1); Bilirubin, Total 1.1 mg/dL (0.2-1.2); Calc. Creatinine Clearance 106 mL/min (70-130); Calcium 8.7 mg/dL (7.8-10.44); Carbon Dioxide 26 mmol/L (23-31); Chloride 105 mmol/L (98-107); Estimated GFR-MDRD 73; Globulin 2.9 g/dL (2.4-3.5); Glucose 180 mg/dL (83-110); Potassium 3.3 mmol/L (3.5-5.1); Sodium 143 mmol/L (136-145)
--- NOTE | 2019-08-18 06:53 | PDOC.FM ---
- Subjective Subjective: She says she has had the nausea for a long time, but she thought it was related to her back pain. She had a steroid shot though and her pain went away and she still experienced the nausea. She says she has become more short of breath over the last 3 days and it is when her mouth gets dry. She has generalized abominal pain. She said she had pain more in the RUQ until the US was performed yesterday. - Objective MAR Reviewed: Yes Vital Signs & Weight: Vital Signs (12 hours) Temp Pulse Resp BP Pulse Ox 08/18/19 03:30 97.8 F 70 12 105/59 L 96 08/17/19 23:22 98.0 F 70 16 99/53 L 97 Weight Weight 108 kg I&O: 08/16/19 08/17/19 08/18/19 06:59 06:59 06:59 Intake Total 1199 Output Total 350 Balance 849 Result Diagrams: 08/18/19 04:41 08/18/19 04:41 EKG Reviewed by me: Yes (BV Paced & A sensed BV Paced) Phys Exam - Physical Examination Constitutional: NAD HEENT: PERRLA, sclera anicteric, oral pharynx no lesions Neck: no nodes, supple Respiratory: no wheezing, no rales, no rhonchi, clear to auscultation bilateral Cardiovascular: RRR, no significant murmur Gastrointestinal: soft, non-tender, positive bowel sounds Musculoskeletal: no edema, pulses present Neurological: moves all 4 limbs Lymphatic: no nodes Psychiatric: normal affect Skin: no rash, normal turgor Dx/Plan (1) Cholelithiasis Code(s): K80.20 - CALCULUS OF GALLBLADDER W/O CHOLECYSTITIS W/O OBSTRUCTION Status: Acute (2) Atrial fibrillation Code(s): I48.91 - UNSPECIFIED ATRIAL FIBRILLATION Status: Acute (3) Hypokalemia Code(s): E87.6 - HYPOKALEMIA Status: Acute (4) Chronic low back pain Code(s): M54.5 - LOW BACK PAIN; G89.29 - OTHER CHRONIC PAIN Status: Chronic (5) DMII (diabetes mellitus, type 2) Status: Chronic Qualifiers: 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 insulin use: with detention use Diabetes mellitus complication status: with kidney complications Diabetes mellitus complication detail: with chronic kidney disease Chronic kidney disease stage : stage 2 (mild) Qualified Code(s): E11.22 - Type 2 diabetes mellitus with diabetic chronic kidney disease; N18.2 - Chronic kidney disease, stage 2 (mild) ; Z79.4 - half-way (current) use of insulin (6) Dyslipidemia Code(s): E78.5 - HYPERLIPIDEMIA, UNSPECIFIED Status: Chronic (7) Gout Code(s): M10.9 - GOUT, UNSPECIFIED Status: Chronic Qualifiers: Gout site: unspecified site Gout etiology: unspecified cause Chronicity: unspecified Qualified Code(s): M10.9 - Gout, unspecified (8) HTN (hypertension) Code(s): I10 - ESSENTIAL (PRIMARY) HYPERTENSION Status: Chronic Qualifiers: Hypertension type: essential hypertension Qualified Code(s): I10 - Essential (primary) hypertension (9) Hypothyroidism Code(s): E03.9 - HYPOTHYROIDISM, UNSPECIFIED Status: Chronic Qualifiers: Hypothyroidism type: unspecified Qualified Code(s): E03.9 - Hypothyroidism , unspecified (10) Systolic and diastolic CHF, chronic Code(s): I50.42 - CHRONIC COMBINED SYSTOLIC AND DIASTOLIC HRT FAIL Status: Chronic - Plan Plan: Rebeca Howell is a 74 year old F with a PMH of A fib, HTN, DM2, Hypothyroidism who presented to the ED with a 1-2 day history of indigestion, nausea and a couple episodes of vomiting today. 1. Cholelithiasis with Intractable Nausea & Vomiting Pt endorses decreased PO intake and 20 lb weight loss in 6-8 weeks * CT Abdomen: Small hiatal hernia, multiple gallstones * Gallbladder US: cholelithiasis * In ED: * Received Zofran and 1L NS * Continue Zofran prn for nausea and IVF 100 NS * UA: Glucose-1000, Trace Ketones * HIDA scan 17 years ago * Consider Gen Surg consult if symptoms do not resolve * Advance diet as tolerated * Dietitian consulted for weight loss 2. Elevated Troponin Trops: <0.01 > 0.098 > 0.159 > 0.217 * SOB ongoing for 3 years, worsened over the last 3 days * Consulted cardiology, Dr. Ruano, appreciate recs 3. Hypokalemia K: 3.1 > 3.3 * Will replace K * Continue home medication Potassium chloride 4. HF Combined Systolic/Diastolic Continue home medications * Quality Assurance Test Program Manager: Bindu * Strict I&Os * Daily weights * No orthopnea, PND 4. Elevated Alk Phos Alk Phos: 149 > 115 * Will monitor with CMP 5. DMII Continue home medications * A * SSI * Accuchecks ACHS 6. Hx of EVELYN and does not wear cpap * Currently on 2L @ 99% * Will wean O2 as tolerated Code Status: Full Diet: CC, Advance as tolerated IVF: NS @100 Activity: Ambulate with Assist, PT & OT consulted PCP: Scarlet Dispo: Tele obs, LOS <48H for intractable nausea and vomiting. Will await on cardiology recommendations. Addendum - Attending - Attending Attestation Date/Time: 08/18/19 1022 I personally evaluated the patient and discussed the management with Dr. Scanlon I agree with the History, Examination, Assessment and Plan documented above with any addition or exceptions noted below. Repeat trop this morning since slowly uptrending and await recommendations from cardiology.
[2019-08-18] MEDS ORDERED: Potassium Chloride 20 MEQ TAB PO SCH (08:30)
[2019-08-18] MEDS ORDERED: Furosemide 40 MG TAB PO SCH (09:00)
[2019-08-18] MEDS ORDERED: FLU VACC TS2019-20(65YR UP)/PF 180 MCG/0.5 ML SYRINGE IM ONE (09:00)
[2019-08-18] MEDS ORDERED: Ezetimibe 10 MG TAB PO SCH (09:00)
[2019-08-18] MEDS ORDERED: Nitroglycerin 0.4 MG TAB (25 Tab Bottle) SL PRN (09:39)
[2019-08-18] MEDS: Sodium Chloride 0.9% 1,000 ML IV SCH ×3 (09:42→21:26)
[2019-08-18] MEDS: Empagliflozin 10 MG TAB PO SCH (09:44)
[2019-08-18] MEDS: Allopurinol 300 MG TAB PO SCH (09:44)
[2019-08-18] MEDS: PARoxetine 20 MG TAB PO SCH (09:45)
[2019-08-18] MEDS: Famotidine 20 MG TAB PO SCH ×2 (09:45→22:06)
[2019-08-18] MEDS: Sacubitril 49 MG/Valsartan 51 MG TABLET PO SCH ×2 (09:45→22:05)
[2019-08-18] MEDS: Oxybutynin 5 MG TAB PO SCH (09:45)
[2019-08-18] MEDS: Apixaban 5 MG TAB PO SCH (10:14)
--- NOTE | 2019-08-18 10:44 | CON ---
DATE OF CONSULTATION: 08/18/2019 REASON FOR CONSULTATION: Nausea, vomiting, increased troponin level. HISTORY OF PRESENT ILLNESS: Ms. Howell is a 74-year-old woman with history of congestive heart failure, systolic diastolic combined, and also single-vessel coronary artery disease with severe ostial stenosis in the diagonal branch. The patient had atrial fibrillation which was extremely difficult to control, ultimately the patient underwent biventricular pacemaker implantation, and I believe, may have also undergone AV junction ablation. The patient did undergo cardiac catheterization in 2017 with findings as outlined above. The main problem is after she eats, she gets right upper quadrant pain, nausea, vomiting, and she is having trouble keeping things down. The patient is not having any chest pain or pressure. PAST HISTORY: 1. Biventricular pacemaker. 2. History of congestive heart failure, systolic diastolic combined. 3. Atrial arrhythmias, which I believe, she has underlying atrial fibrillation. We will interrogate the pacemaker to check. MEDICATION: Please see the nurse's notes. They include 1. Entresto. 2. Apixaban. 3. Furosemide. 4. Potassium. 5. Jardiance. 6. Carvedilol. 7. Zetia. 8. We will need to check to see if there is no statin listed. We will need to check and see if she is also taking a statin. SOCIAL HISTORY: No alcohol or tobacco. REVIEW OF SYSTEMS: CONSTITUTIONAL: Positive for weakness, fatigue, nausea, vomiting. CARDIAC: No chest pain. GASTROINTESTINAL: Positive for nausea and vomiting. SKIN: No rashes. NEUROLOGIC: No unilateral weakness or numbness. PSYCHIATRIC: No unusual depression or anxiety. ALLERGIES: TO ADHESIVE AND SULFA. PHYSICAL EXAMINATION: GENERAL: This is a pleasant elderly woman, in no distress. VITAL SIGNS: Blood pressure 99/53, earlier today about 118/61; pulse 70. HEENT: Eyes, sclerae nonicteric. Mouth, mucous membranes moist. NECK: Supple, no lymphadenopathy. LUNGS: Clear. CARDIAC: Normal S1, normal S2. There is no murmur, rub, or gallop. ABDOMEN: Obese, nontender. EXTREMITIES: Warm, dry. No clubbing or cyanosis. There is no significant edema. SKIN: Warm and dry. PERTINENT LABORATORY DATA: The creatinine is 0.77, potassium is 3.3. Troponin peak 0.217. EKG does show some T-wave inversion in V3 through V6 and one in aVL with biventricular pacing, right bundle-branch block pattern as would be expected with Bi V pacing. The ultrasound of the right upper quadrant reveals cholelithiasis, but not cholecystitis. ASSESSMENT: 1. Atrial fibrillation, likely persistent, longstanding. We will interrogate the pacemaker. 2. Status post biventricular pacemaker. 3. Coronary artery disease with an ostial stenosis in a diagonal branch in the past. 4. Diabetes. 5. Obesity. 6. Cholelithiasis (gallstones). 7. Nausea, vomiting, and right upper quadrant pain. This may be related to her gallbladder. 8. Hypokalemia. PLAN: 1. She is receiving potassium. 2. We will reduce normal saline infusion in view of history of heart failure. 3. Hold Lasix for now. 4. Echocardiogram to be repeated. Previously, she did have left ventricular dysfunction related to the diagonal branch stenosis. 5. I will review the cardiac catheterization films, but my recollection was there was no intervention really feasible from a percutaneous standpoint. 6. A poor surgical candidate at this present time with abnormal EKG. 7. Hold apixaban for now. 8. We will substitute enoxaparin. We will follow with you. For now, conservative therapy appears to be appropriate choice. As mentioned also, echocardiogram will be done. Job ID: [id number] [facility]
[2019-08-18] MEDS ORDERED: Enoxaparin Sodium 100 MG/ML SYRINGE SC SCH (10:45)
[2019-08-18] MEDS: Carvedilol 3.125 MG TAB PO SCH ×2 (11:03→16:15)
[2019-08-18] MEDS: traMADol HCl 50 MG TAB PO PRN ×2 (11:09→21:15)
[2019-08-18 11:16] LABS: Troponin I 0.089 ng/mL (< 0.028)
[2019-08-18] MEDS: Insulin Glargine 16 UNITS in Pre-Filled Syringe 1 EACH SC SCH ×2 (11:18→22:06)
--- NOTE | 2019-08-18 14:43 | CON ---
DATE OF CONSULTATION: 08/18/2019 CHIEF COMPLAINT: Right upper quadrant pain. HISTORY OF PRESENT ILLNESS: This is a 74-year-old female, who presents with pain in the right upper quadrant associated with nausea, vomiting. The pain is sharp, it is continuous, made better with lying still. She notes no significant intake of greasy, fatty, fried food that brought it on. She has been n.p.o. overnight. The pain is slightly improved from on admission. She has been seen by Dr. Ruano as well. She notes previous right upper quadrant pain. She has had full workup for gallbladder in the past. She has never been told she had gallstones. She notes previous HIDA scan, but she is not sure of the results of that. PAST MEDICAL HISTORY: Includes heart failure and arrhythmias. PAST SURGICAL HISTORY: Includes pacemaker. MEDICATIONS: 1. Entresto. 2. Eliquis. 3. Furosemide. 4. Potassium. 5. Jardiance. 6. Zetia. 7. Carvedilol. SOCIAL HISTORY: No smoking or alcohol. REVIEW OF SYSTEMS: Ten-system review of systems is otherwise negative unless described above. PHYSICAL EXAMINATION: HEENT: Sclerae are anicteric. Oropharynx clear. NECK: No lymphadenopathy. CHEST: Clear. HEART: Regular rate. ABDOMEN: Soft. It is tender in the right upper quadrant with localized guarding without rebound. No abdominal hernia. EXTREMITIES: No ischemia or edema to extremities. IMAGING STUDIES: Ultrasound shows gallstones, but there is no inflammatory change or thickened gallbladder wall. Common bile duct is normal. CT scan of the abdomen and pelvis again shows no inflammatory change to the gallbladder. ASSESSMENT: Right upper quadrant pain with history of gallstones now. PLAN: This could be her gallbladder, although she has no findings of acute cholecystitis on her x-rays. We will defer to Dr. Ruano to determine her risk stratification. This could be managed nonoperatively with either cholecystostomy tube or observation. If she is deemed to be low risk for surgery, then we could perform cholecystectomy. We will follow with you. Job ID: [id number]
[2019-08-18] MEDS ORDERED: Aspirin 81 mg Enteric Coated Tablet PO SCH (15:30)
--- NOTE | 2019-08-18 16:48 | EKG ---
Test Reason : Blood Pressure : / mmHG Vent. Rate : 070 BPM Atrial Rate : 070 BPM P-R Int : 000 ms QRS Dur : 164 ms QT Int : 588 ms P-R-T Axes : 074 130 201 degrees QTc Int : 635 ms Suspect unspecified pacemaker failure Ventricular-paced rhythm Abnormal ECG When compared with ECG of 18-MAY-2019 17:03, No significant change was found Confirmed by Augustine HUA ([id number]) on 08/18/2019 4:48:12 PM Referred By: AMANDA Confirmed By:Augustine HUA
[2019-08-18] MEDS: Acetaminophen 325 MG TAB PO PRN (21:15)
[2019-08-18] MEDS: Enoxaparin Sodium 100 MG/ML SYRINGE SC SCH (22:05)
[2019-08-18] MEDS: Ezetimibe 10 MG TAB PO SCH (22:06)
[2019-08-18] MEDS: Gabapentin 300 MG CAP PO SCH (22:06)
[2019-08-19 05:29] LABS: Troponin I 0.036 ng/mL (< 0.028)
[2019-08-19] MEDS: traMADol HCl 50 MG TAB PO PRN ×3 (06:30→17:24)
--- NOTE | 2019-08-19 07:00 | PDOC.FM ---
- Subjective Subjective: She says she is having abdominal pain, but it is not as bad as yesterday. It is in the RUQ and radiates to the back. She says it is better with medicine. She denies any dysuria, foul smelling urine, or frequency. - Objective MAR Reviewed: Yes Vital Signs & Weight: Vital Signs (12 hours) Temp Pulse Resp BP Pulse Ox 08/19/19 03:57 98.2 F 70 14 119/63 98 08/18/19 23:26 109/57 L 08/18/19 19:08 98.9 F 70 16 94/51 L 97 Weight Admit Weight 107.955 kg Weight 107.955 kg I&O: 08/17/19 08/18/19 08/19/19 06:59 06:59 06:59 Intake Total 1199 3864 Output Total 350 1150 Balance 849 8764 Result Diagrams: 08/18/19 04:41 08/19/19 04:33 EKG Reviewed by me: Yes (V pacing in 60-70s) Phys Exam - Physical Examination Constitutional: NAD HEENT: moist MMs, sclera anicteric, oral pharynx no lesions Neck: supple Respiratory: no wheezing, no rales, no rhonchi, clear to auscultation bilateral Cardiovascular: RRR Gastrointestinal: soft, positive bowel sounds TTP in RUQ Musculoskeletal: no edema, pulses present Neurological: moves all 4 limbs Lymphatic: no nodes Psychiatric: normal affect Skin: no rash, normal turgor Dx/Plan (1) Cholelithiasis Code(s): K80.20 - CALCULUS OF GALLBLADDER W/O CHOLECYSTITIS W/O OBSTRUCTION Status: Acute (2) Atrial fibrillation Code(s): I48.91 - UNSPECIFIED ATRIAL FIBRILLATION Status: Acute (3) Hypokalemia Code(s): E87.6 - HYPOKALEMIA Status: Acute (4) Chronic low back pain Code(s): M54.5 - LOW BACK PAIN; G89.29 - OTHER CHRONIC PAIN Status: Chronic (5) DMII (diabetes mellitus, type 2) Status: Chronic Qualifiers: Diabetes mellitus fpc insulin use: with fpc use Diabetes mellitus complication status: with kidney complications Diabetes mellitus complication detail: with chronic kidney disease Chronic kidney disease stage : stage 2 (mild) Qualified Code(s): E11.22 - Type 2 diabetes mellitus with diabetic chronic kidney disease; N18.2 - Chronic kidney disease, stage 2 (mild) ; Z79.4 - USP (current) use of insulin (6) Dyslipidemia Code(s): E78.5 - HYPERLIPIDEMIA, UNSPECIFIED Status: Chronic (7) Gout Code(s): M10.9 - GOUT, UNSPECIFIED Status: Chronic Qualifiers: Gout site: unspecified site Gout etiology: unspecified cause Chronicity: unspecified Qualified Code(s): M10.9 - Gout, unspecified (8) HTN (hypertension) Code(s): I10 - ESSENTIAL (PRIMARY) HYPERTENSION Status: Chronic Qualifiers: Hypertension type: essential hypertension Qualified Code(s): I10 - Essential (primary) hypertension (9) Hypothyroidism Code(s): E03.9 - HYPOTHYROIDISM, UNSPECIFIED Status: Chronic Qualifiers: Hypothyroidism type: unspecified Qualified Code(s): E03.9 - Hypothyroidism , unspecified (10) Systolic and diastolic CHF, chronic Code(s): I50.42 - CHRONIC COMBINED SYSTOLIC AND DIASTOLIC HRT FAIL Status: Chronic - Plan Plan: Rebeca Howell is a 74 year old F with a PMH of A fib, HTN, DM2, Hypothyroidism who presented to the ED with a 1-2 day history of indigestion, nausea and a couple episodes of vomiting today. 1. Cholelithiasis with Intractable Nausea & Vomiting Pt endorses decreased PO intake and 20 lb weight loss in 6-8 weeks * CT Abdomen: Small hiatal hernia, multiple gallstones * Gallbladder US: cholelithiasis * In ED: * Received Zofran and 1L NS * Continue Zofran prn for nausea and IVF 100 NS * UA: Glucose-1000, Trace Ketones * HIDA scan 17 years ago * Consider Gen Surg consult if symptoms do not resolve * No surgery currently, medical management * Dietitian consulted for weight loss 2. Elevated Troponin Trops: <0.01 > 0.098 > 0.159 > 0.217 * SOB ongoing for 3 years, worsened over the last 3 days * Consulted cardiology, Dr. Ruano, appreciate recs * Therapeutic Lovenox 100 mg BID * ECHO: pending * Medical management 3. Hypokalemia K: 3.1 > 4.0 * Will replace K * Continue home medication Potassium chloride 4. HF Combined Systolic/Diastolic Continue home medications * Babbitter: Bindu * Strict I&Os * Net positive consider d/c fluids this morning * Daily weights * No orthopnea, PND 4. Elevated Alk Phos Alk Phos: 149 > 115 * Will monitor with CMP 5. DMII Continue home medications * A * SSI * Accuchecks ACHS 6. Hx of EVELYN and does not wear cpap * Currently on 2L @ 99% * Will wean O2 as tolerated Code Status: Full Diet: Clear Liquid IVF: NS @70 Activity: Ambulate with Assist, PT & OT consulted PCP: [facility] Dispo: Tele obs, LOS <48H for intractable nausea and vomiting. Will await on cardiology & surgery recommendations. Addendum - Attending - Attending Attestation Date/Time: 08/19/19 3979 I personally evaluated the patient and discussed the management with Dr. Scanlon I agree with the History, Examination, Assessment and Plan documented above with any addition or exceptions noted below. RUQ pain that spread to epigastrim and right flank. Tramadol improves. will await recs from cardiology and gen surgery pending for further treatment/eval.
[2019-08-19 07:26] LABS: ALT (SGPT) 10 U/L (8-55); AST (SGOT) 26 U/L (5-34); Albumin 3.2 g/dL (3.4-4.8); Alkaline Phosphatase 117 U/L (40-110); Anion Gap 13 mmol/L (10-20); BUN (Urea Nitrogen) 6 mg/dL (9.8-20.1); Bilirubin, Total 1.1 mg/dL (0.2-1.2); Calc. Creatinine Clearance 110 mL/min (70-130); Calcium 8.9 mg/dL (7.8-10.44); Carbon Dioxide 27 mmol/L (23-31); Chloride 106 mmol/L (98-107); Estimated GFR-MDRD 76; Globulin 3.1 g/dL (2.4-3.5); Glucose 120 mg/dL (83-110); Protein, Total 6.3 g/dL (6.0-8.3); Sodium 142 mmol/L (136-145)
[2019-08-19] MEDS: Enoxaparin Sodium 100 MG/ML SYRINGE SC SCH ×2 (08:40→20:31)
[2019-08-19] MEDS: Aspirin 81 mg Enteric Coated Tablet PO SCH (08:40)
[2019-08-19] MEDS: PARoxetine 20 MG TAB PO SCH (08:40)
[2019-08-19] MEDS: Oxybutynin 5 MG TAB PO SCH (08:41)
[2019-08-19] MEDS: Allopurinol 300 MG TAB PO SCH (08:41)
[2019-08-19] MEDS: Carvedilol 3.125 MG TAB PO SCH ×2 (08:41→17:25)
[2019-08-19] MEDS: Famotidine 20 MG TAB PO SCH ×2 (08:41→20:31)
[2019-08-19] MEDS: Sacubitril 49 MG/Valsartan 51 MG TABLET PO SCH ×2 (08:41→20:32)
[2019-08-19] MEDS: Empagliflozin 10 MG TAB PO SCH (08:42)
[2019-08-19] MEDS: Insulin Glargine 16 UNITS in Pre-Filled Syringe 1 EACH SC SCH ×2 (08:42→20:32)
--- NOTE | 2019-08-19 10:08 | PRG ---
DATE OF SERVICE: 08/18/2019 ADDENDUM: I did review the cardiac catheterization films. The patient does have severe ostial stenosis in the diagonal branch. There is a bifurcation just after the ostial lesion. This would be certainly a suboptimal vessel for percutaneous intervention. We would have to extend the stent back into the LAD, potentially jeopardizing the LAD to improve flow in the diagonal. The patient should be treated medically at this time. I will go ahead and add aspirin. I do not think she is actually on that currently. She is also on Lovenox presently. Dr. Sol will be seeing the patient this weekend. Job ID: [id number]
[2019-08-19] MEDS: Sodium Chloride 0.9% 1,000 ML IV SCH (11:17)
[2019-08-19] MEDS: Ondansetron ODT 4 MG TAB PO PRN ×2 (11:33→17:28)
[2019-08-19] MEDS: Ezetimibe 10 MG TAB PO SCH (20:32)
[2019-08-19] MEDS: Gabapentin 300 MG CAP PO SCH (20:32)
[2019-08-20] MEDS: traMADol HCl 50 MG TAB PO PRN ×4 (00:10→21:07)
[2019-08-20] MEDS: Sodium Chloride 0.9% 1,000 ML IV SCH ×2 (00:25→13:39)
--- NOTE | 2019-08-20 06:51 | PDOC.FM ---
- Subjective Subjective: She was able to eat her breakfast and lunch, but she was unable to eat dinner. She says the pain is better than when she initially came in to the hospital, but she is still experiencing pain and it is worse after movement. - Objective MAR Reviewed: Yes Vital Signs & Weight: Vital Signs (12 hours) Temp Pulse Resp BP BP Pulse Ox 08/20/19 03:52 98.9 F 79 19 101/65 98 08/19/19 20:29 98.2 F 70 20 119/72 96 Weight Admit Weight 107.955 kg Weight 107.501 kg I&O: 08/18/19 08/19/19 08/20/19 06:59 06:59 06:59 Intake Total 1199 3864 1880 Output Total 350 1150 200 Balance 849 9944 1680 Result Diagrams: 08/18/19 04:41 08/20/19 07:53 EKG Reviewed by me: Yes (V pacing 70s with occasional PVCs) Phys Exam - Physical Examination Constitutional: NAD HEENT: moist MMs, sclera anicteric, oral pharynx no lesions Neck: no nodes, supple Respiratory: no wheezing, no rales, no rhonchi, clear to auscultation bilateral Cardiovascular: RRR, no significant murmur, no rub Gastrointestinal: soft, non-tender, positive bowel sounds Musculoskeletal: no edema, pulses present Neurological: moves all 4 limbs Lymphatic: no nodes Psychiatric: normal affect Skin: no rash, normal turgor Dx/Plan (1) Cholelithiasis Code(s): K80.20 - CALCULUS OF GALLBLADDER W/O CHOLECYSTITIS W/O OBSTRUCTION Status: Acute (2) Atrial fibrillation Code(s): I48.91 - UNSPECIFIED ATRIAL FIBRILLATION Status: Acute (3) Hypokalemia Code(s): E87.6 - HYPOKALEMIA Status: Acute (4) Chronic low back pain Code(s): M54.5 - LOW BACK PAIN; G89.29 - OTHER CHRONIC PAIN Status: Chronic (5) DMII (diabetes mellitus, type 2) Status: Chronic Qualifiers: Diabetes mellitus fci insulin use: with fci use Diabetes mellitus complication status: with kidney complications Diabetes mellitus complication detail: with chronic kidney disease Chronic kidney disease stage : stage 2 (mild) Qualified Code(s): E11.22 - Type 2 diabetes mellitus with diabetic chronic kidney disease; N18.2 - Chronic kidney disease, stage 2 (mild) ; Z79.4 - MCC (current) use of insulin (6) Dyslipidemia Code(s): E78.5 - HYPERLIPIDEMIA, UNSPECIFIED Status: Chronic (7) Gout Code(s): M10.9 - GOUT, UNSPECIFIED Status: Chronic Qualifiers: Gout site: unspecified site Gout etiology: unspecified cause Chronicity: unspecified Qualified Code(s): M10.9 - Gout, unspecified (8) HTN (hypertension) Code(s): I10 - ESSENTIAL (PRIMARY) HYPERTENSION Status: Chronic Qualifiers: Hypertension type: essential hypertension Qualified Code(s): I10 - Essential (primary) hypertension (9) Hypothyroidism Code(s): E03.9 - HYPOTHYROIDISM, UNSPECIFIED Status: Chronic Qualifiers: Hypothyroidism type: unspecified Qualified Code(s): E03.9 - Hypothyroidism , unspecified (10) Systolic and diastolic CHF, chronic Code(s): I50.42 - CHRONIC COMBINED SYSTOLIC AND DIASTOLIC HRT FAIL Status: Chronic - Plan Plan: Rebeca Howell is a 74 year old F with a PMH of A fib, HTN, DM2, Hypothyroidism who presented to the ED with a 1-2 day history of indigestion, nausea and a couple episodes of vomiting today. 1. Cholelithiasis with Intractable Nausea & Vomiting Pt endorses decreased PO intake and 20 lb weight loss in 6-8 weeks * CT Abdomen: Small hiatal hernia, multiple gallstones * Gallbladder US: cholelithiasis * In ED: * Received Zofran and 1L NS * Continue Zofran prn for nausea and IVF 100 NS * UA: Glucose-1000, Trace Ketones * HIDA scan 17 years ago * Consider Gen Surg consult if symptoms do not resolve * No surgery currently, medical management * Dietitian consulted for weight loss 2. Elevated Troponin Trops: <0.01 > 0.098 > 0.159 > 0.217 * SOB ongoing for 3 years, worsened over the last 3 days * Consulted cardiology, Dr. Ruano, appreciate recs * Therapeutic Lovenox 100 mg BID * ECHO: pending * Medical management 3. Hypokalemia, Resolved K: 3.1 > 4.0 * Will replace K * Continue home medication Potassium chloride 4. HF Combined Systolic/Diastolic Continue home medications * Junior Paralegal: Bindu * Strict I&Os * Net positive consider d/c fluids this morning * Daily weights * No orthopnea, PND * ECHO: EF 55-60%, mild LA dilation, MR, & TR 4. Elevated Alk Phos, Resolved Alk Phos: 149 > 105 * Will monitor with CMP 5. DMII Continue home medications * SSI * Accuchecks ACHS 6. Hx of EVELYN and does not wear cpap * Currently on 2L @ 99% * Will wean O2 as tolerated Code Status: Full Diet: Clear Liquid IVF: NS @70 Activity: Ambulate with Assist, PT & OT consulted PCP: [facility] Dispo: Tele inpt, LOS >48H for unstable angina. Will await on cardiology & surgery recommendations. Addendum - Attending - Attending Attestation Date/Time: 08/20/19 1101 I personally evaluated the patient and discussed the management with Dr. Scanlon I agree with the History, Examination, Assessment and Plan documented above with any addition or exceptions noted below. Awaiting specialist recommendations. Will f/u with gen surg and cardiology today for plan.
[2019-08-20] MEDS: Ondansetron ODT 4 MG TAB PO PRN (08:02)
[2019-08-20] MEDS: PARoxetine 20 MG TAB PO SCH (08:02)
[2019-08-20] MEDS: Aspirin 81 mg Enteric Coated Tablet PO SCH (08:03)
[2019-08-20] MEDS: Sacubitril 49 MG/Valsartan 51 MG TABLET PO SCH ×2 (08:03→21:07)
[2019-08-20] MEDS: Oxybutynin 5 MG TAB PO SCH (08:03)
[2019-08-20] MEDS: Allopurinol 300 MG TAB PO SCH (08:03)
[2019-08-20] MEDS: Carvedilol 3.125 MG TAB PO SCH ×2 (08:03→17:02)
[2019-08-20] MEDS: Famotidine 20 MG TAB PO SCH ×2 (08:03→21:08)
[2019-08-20] MEDS: Enoxaparin Sodium 100 MG/ML SYRINGE SC SCH ×2 (08:04→21:10)
[2019-08-20] MEDS: Insulin Glargine 16 UNITS in Pre-Filled Syringe 1 EACH SC SCH ×2 (08:05→21:38)
[2019-08-20 08:18] LABS: ALT (SGPT) 12 U/L (8-55); AST (SGOT) 27 U/L (5-34); Alkaline Phosphatase 105 U/L (40-110); Anion Gap 12 mmol/L (10-20); BUN (Urea Nitrogen) 5 mg/dL (9.8-20.1); Calc. Creatinine Clearance 123 mL/min (70-130); Calcium 8.5 mg/dL (7.8-10.44); Carbon Dioxide 25 mmol/L (23-31); Chloride 106 mmol/L (98-107); Estimated GFR-MDRD 87; Globulin 2.7 g/dL (2.4-3.5); Glucose 98 mg/dL (83-110); Potassium 3.5 mmol/L (3.5-5.1); Protein, Total 5.7 g/dL (6.0-8.3); Sodium 139 mmol/L (136-145)
[2019-08-20] MEDS: Empagliflozin 10 MG TAB PO SCH (08:39)
[2019-08-20] MEDS: Ezetimibe 10 MG TAB PO SCH (21:07)
[2019-08-20] MEDS: Gabapentin 300 MG CAP PO SCH (21:08)
[2019-08-21] MEDS: traMADol HCl 50 MG TAB PO PRN ×3 (03:19→20:00)
--- NOTE | 2019-08-21 06:29 | PDOC.FM ---
- Subjective Subjective: Pt complaining of mild diffuse abdominal pain in RUQ which radiates to her umbilicus and R flank. Denies N/V. Slept well overnight. Overnight tele showed Bi-V pacing w/ occasional PVC. - Objective MAR Reviewed: Yes Vital Signs & Weight: Vital Signs (12 hours) Temp Pulse Resp BP Pulse Ox 08/21/19 04:00 98.1 F 71 16 142/64 H 96 08/20/19 21:03 98.7 F 81 19 128/61 98 Weight Admit Weight 107.955 kg Weight 107.411 kg I&O: 08/19/19 08/20/19 08/21/19 06:59 06:59 06:59 Intake Total 3864 1880 2810 Output Total 1150 200 Balance 2714 1680 2810 Result Diagrams: 08/18/19 04:41 08/20/19 07:53 Phys Exam - Physical Examination Constitutional: NAD Respiratory: clear to auscultation bilateral Cardiovascular: RRR, no significant murmur Gastrointestinal: soft (moderately TTP), positive bowel sounds Psychiatric: normal affect, A&O x 3 Dx/Plan (1) Cholelithiasis Code(s): K80.20 - CALCULUS OF GALLBLADDER W/O CHOLECYSTITIS W/O OBSTRUCTION Status: Acute (2) Atrial fibrillation Code(s): I48.91 - UNSPECIFIED ATRIAL FIBRILLATION Status: Acute (3) CKD (chronic kidney disease) stage 2, GFR 60-89 ml/min Code(s): N18.2 - CHRONIC KIDNEY DISEASE, STAGE 2 (MILD) Status: Chronic (4) DMII (diabetes mellitus, type 2) Status: Chronic Qualifiers: Diabetes mellitus superintendent marine oil terminal insulin use: with snf use Diabetes mellitus complication status: with kidney complications Diabetes mellitus complication detail: with chronic kidney disease Chronic kidney disease stage : stage 2 (mild) Qualified Code(s): E11.22 - Type 2 diabetes mellitus with diabetic chronic kidney disease; N18.2 - Chronic kidney disease, stage 2 (mild) ; Z79.4 - half-way (current) use of insulin (5) HTN (hypertension) Code(s): I10 - ESSENTIAL (PRIMARY) HYPERTENSION Status: Chronic Qualifiers: Hypertension type: essential hypertension Qualified Code(s): I10 - Essential (primary) hypertension (6) Hypothyroidism Code(s): E03.9 - HYPOTHYROIDISM, UNSPECIFIED Status: Chronic Qualifiers: Hypothyroidism type: unspecified Qualified Code(s): E03.9 - Hypothyroidism , unspecified (7) Systolic and diastolic CHF, chronic Code(s): I50.42 - CHRONIC COMBINED SYSTOLIC AND DIASTOLIC HRT FAIL Status: Chronic - Plan Plan: Rebeca Howell is a 74 year old F with a PMH of A fib, HTN, DM2, Hypothyroidism who presented to the ED with a 1-2 day history of indigestion, nausea and a couple episodes of vomiting today. 1. Cholelithiasis with Intractable Nausea & Vomiting Pt endorses decreased PO intake and 20 lb weight loss in 6-8 weeks * CT Abdomen: Small hiatal hernia, multiple gallstones * Gallbladder US: cholelithiasis * Consider Gen Surg consult if symptoms do not resolve * No surgery currently, medical management. Would like cardiology clearance for cholecystectomy. Otherwise, perc drainage. * Dietitian consulted for weight loss 2. Elevated Troponin w/ dyspnea, improved * Consulted cardiology, Dr. Ruano, appreciate recs * Therapeutic Lovenox 100 mg BID, continue if surgery to proceed w/ lap ela. * ECHO: improved, EF 55-60% * Medical management 3. Hypokalemia, Resolved * Continue home medication Potassium chloride 4. CHF Combined Systolic/Diastolic Continue home medications * Check Scaler: Bindu * Strict I&Os * ECHO: EF 55-60%, mild LA dilation, MR, & TR 4. Elevated Alk Phos, Resolved - monitor 5. DMII Continue home medications * SSI * Accuchecks ACHS 6. Hx of EVELYN and does not wear cpap Code Status: Full Diet: Clear Liquid IVF: SL Activity: Ambulate with Assist, PT & OT consulted PCP: [facility] Dispo: Tele inpt, LOS >48H for unstable angina. Will await on cardiology & surgery recommendations. Addendum - Attending - Attending Attestation Date/Time: 08/21/19 5927 I personally evaluated the patient and discussed the management with Dr. Alston. I agree with the History, Examination, Assessment and Plan documented above with any addition or exceptions noted below. Patient here with cardiac ischemia, suspect UA, and abdominal pain suspicious for cholelithiasis. She will undergo cholecystectomy tomorrow. Her abdominal pain could also be related to constipation and we will start on bowel regimen today.
[2019-08-21] MEDS: Sacubitril 49 MG/Valsartan 51 MG TABLET PO SCH ×2 (08:27→20:02)
[2019-08-21] MEDS: Carvedilol 3.125 MG TAB PO SCH ×2 (08:27→16:42)
[2019-08-21] MEDS: Aspirin 81 mg Enteric Coated Tablet PO SCH (08:28)
[2019-08-21] MEDS: PARoxetine 20 MG TAB PO SCH (08:28)
[2019-08-21] MEDS: Oxybutynin 5 MG TAB PO SCH (08:28)
[2019-08-21] MEDS: Allopurinol 300 MG TAB PO SCH (08:28)
[2019-08-21] MEDS: Famotidine 20 MG TAB PO SCH ×2 (08:29→20:03)
[2019-08-21] MEDS: Empagliflozin 10 MG TAB PO SCH (08:29)
[2019-08-21] MEDS: Enoxaparin Sodium 100 MG/ML SYRINGE SC SCH (08:30)
[2019-08-21] MEDS: Insulin Glargine 16 UNITS in Pre-Filled Syringe 1 EACH SC SCH ×2 (08:31→19:55)
[2019-08-21] MEDS: Sodium Chloride 0.9% 1,000 ML IV SCH ×2 (08:37→20:06)
--- NOTE | 2019-08-21 10:11 | PRG ---
DATE OF SERVICE: 08/21/2019 SUBJECTIVE: Ms. Howell continues to have severe abdominal pain and severe right upper quadrant pain. She is not having any chest pain. OBJECTIVE: VITAL SIGNS: Her blood pressure is 142/64, pulse is 70, it is paced. LUNGS: Clear. CARDIAC: Normal S1 and S2. ABDOMEN: Soft and nontender, but I only did very minimal palpation. EXTREMITIES: Warm and dry. PERTINENT LABORATORY DATA: Creatinine is 0.66. The peak troponin was 0.159 and that was on the 26th. ASSESSMENT: 1. Continue right upper quadrant abdominal pain, likely related to her gallbladder. 2. Coronary artery disease. Medical therapy being the only realistic option. 3. Status post non-ST elevation myocardial infarction. 4. Previous pacemaker. 5. Atrial fibrillation. PLAN: I think it is appropriate to proceed to surgery as Dr. Lo was considering in view of the intractable pain. There certainly is some risk from a cardiac standpoint, but I think in view of the patient's ongoing symptoms be appropriate to proceed with surgery. Fortunately, the ejection fraction shows normal left ventricular wall motion and the troponin rise is only slight related to demand ischemia. She does have an ostial diagonal lesion which could be only treated medically. Job ID: [id number]
--- NOTE | 2019-08-21 10:14 | PRG ---
DATE OF SERVICE: 08/21/2019 SUBJECTIVE: Ms. Howell continues to have right upper quadrant pain, associated with nausea and occasional vomiting. Surely, it is now significantly better than it was on Wednesday. Discussed with Dr. Ruano this morning. He thinks she is at intermediate risk for surgery. OBJECTIVE: VITAL SIGNS: Blood pressure 139/65, pulse 71, respirations 12. She is afebrile. ABDOMEN: Soft. She is tender in the right upper quadrant with localized guarding without rebound. LABORATORY DATA: LFTs on 08/19 were normal. White blood cell count normal. ASSESSMENT: Significantly significant gallbladder disease without radiologic appearance of cholecystitis. PLAN: Discussed with Dr. Ruano. We will go ahead and proceed with cholecystectomy tomorrow. Hold Lovenox until postoperative. Risks, benefits, and alternatives were discussed. She gives consent. We will do this tomorrow. Job ID: [id number]
[2019-08-21] MEDS ORDERED: Potassium Chloride 20 MEQ TAB PO SCH (12:00)
[2019-08-21] MEDS: Gabapentin 300 MG CAP PO SCH (20:02)
[2019-08-21] MEDS: Ezetimibe 10 MG TAB PO SCH (20:02)
[2019-08-21] MEDS: Simethicone Chewable 80 MG TAB PO SCH (20:03)
[2019-08-21] MEDS ORDERED: Enoxaparin Sodium 40 MG/0.4 ML SYRINGE SC SCH (21:00)
[2019-08-22] MEDS: traMADol HCl 50 MG TAB PO PRN ×3 (03:17→20:13)
[2019-08-22] MEDS: Carvedilol 3.125 MG TAB PO SCH ×2 (05:51→16:18)
--- NOTE | 2019-08-22 06:02 | PDOC.FM ---
- Subjective Subjective: Pt abd pain remains the same today. Did not consume anything last night for dinner b/c she is tired of drinking liquids. Understands she has lap ela today, denies questions. - Objective MAR Reviewed: Yes Vital Signs & Weight: Vital Signs (12 hours) Temp Pulse Resp BP BP Pulse Ox 08/22/19 03:59 98.8 F 69 18 138/60 95 08/21/19 19:58 98.1 F 88 20 129/71 96 Weight Admit Weight 108 kg Weight 106.141 kg I&O: 08/20/19 08/21/19 08/22/19 06:59 06:59 06:59 Intake Total 1880 2810 960 Output Total 200 Balance 1680 2810 960 Result Diagrams: 08/18/19 04:41 08/20/19 07:53 Phys Exam - Physical Examination Constitutional: NAD Respiratory: clear to auscultation bilateral Cardiovascular: RRR Gastrointestinal: soft, no distention, positive bowel sounds mild tenderness in RLQ and R flank Musculoskeletal: no edema Dx/Plan (1) Cholelithiasis Code(s): K80.20 - CALCULUS OF GALLBLADDER W/O CHOLECYSTITIS W/O OBSTRUCTION Status: Acute (2) Atrial fibrillation Code(s): I48.91 - UNSPECIFIED ATRIAL FIBRILLATION Status: Acute (3) CKD (chronic kidney disease) stage 2, GFR 60-89 ml/min Code(s): N18.2 - CHRONIC KIDNEY DISEASE, STAGE 2 (MILD) Status: Chronic (4) DMII (diabetes mellitus, type 2) Status: Chronic Qualifiers: Diabetes mellitus prison insulin use: with prison use Diabetes mellitus complication status: with kidney complications Diabetes mellitus complication detail: with chronic kidney disease Chronic kidney disease stage : stage 2 (mild) Qualified Code(s): E11.22 - Type 2 diabetes mellitus with diabetic chronic kidney disease; N18.2 - Chronic kidney disease, stage 2 (mild) ; Z79.4 - termite renewal inspector (current) use of insulin (5) HTN (hypertension) Code(s): I10 - ESSENTIAL (PRIMARY) HYPERTENSION Status: Chronic Qualifiers: Hypertension type: essential hypertension Qualified Code(s): I10 - Essential (primary) hypertension (6) Hypothyroidism Code(s): E03.9 - HYPOTHYROIDISM, UNSPECIFIED Status: Chronic Qualifiers: Hypothyroidism type: unspecified Qualified Code(s): E03.9 - Hypothyroidism , unspecified (7) Systolic and diastolic CHF, chronic Code(s): I50.42 - CHRONIC COMBINED SYSTOLIC AND DIASTOLIC HRT FAIL Status: Chronic - Plan Plan: Rebeca Howell is a 74 year old F with a PMH of A fib, HTN, DM2, Hypothyroidism who presented to the ED with a 1-2 day history of indigestion, nausea and a couple episodes of vomiting today. 1. Cholelithiasis with Intractable Nausea & Vomiting - cardiac clearance granted per Bindu for lap ela. To be done today 08/[address] Lo. * Dietitian consulted for weight loss 2. Elevated Troponin w/ dyspnea, improved * Consulted cardiology, Dr. Ruano, appreciate recs * LVX held for surgery, continue post-op * ECHO: improved, EF 55-60% * Medical management 3. Hypokalemia, Resolved * Continue home medication Potassium chloride 4. CHF Combined Systolic/Diastolic Continue home medications * Strict I&Os 4. Elevated Alk Phos, Resolved - monitor 5. DMII Continue home medications * SSI * Accuchecks ACHS 6. Hx of EVELYN and does not wear cpap Code Status: Full Diet: NPO for surgery. IVF: SL Activity: Ambulate with Assist, PT & OT consulted PCP: [facility] Dispo: Tele inpt, LOS >48H. Surgery today. Addendum - Attending - Attending Attestation Date/Time: 08/22/19 7815 I personally evaluated the patient and discussed the management with Dr. Alston. I agree with the History, Examination, Assessment and Plan documented above with any addition or exceptions noted below.
[2019-08-22] MEDS: PARoxetine 20 MG TAB PO SCH (09:33)
[2019-08-22] MEDS: Famotidine 20 MG TAB PO SCH ×2 (09:35→20:11)
[2019-08-22] MEDS: Allopurinol 300 MG TAB PO SCH (09:35)
[2019-08-22] MEDS: Aspirin 81 mg Enteric Coated Tablet PO SCH (09:35)
[2019-08-22] MEDS: Sacubitril 49 MG/Valsartan 51 MG TABLET PO SCH ×2 (09:35→20:12)
[2019-08-22] MEDS: Oxybutynin 5 MG TAB PO SCH (09:35)
[2019-08-22] MEDS ORDERED: Ondansetron PF 4 MG/2 ML Vial ONE ×2 (09:50→12:09)
[2019-08-22] MEDS ORDERED: PHENYLEPHRINE-NS 100 MCG/ML 10 ML SYRINGE ONE (09:50)
[2019-08-22] MEDS ORDERED: Glycopyrrolate 0.2 MG/ML 5 ML SYRINGE ONE (09:50)
[2019-08-22] MEDS ORDERED: Rocuronium Bromide 10 MG/ML (10ML VIAL) ONE (09:50)
[2019-08-22] MEDS ORDERED: Succinylcholine Chloride 20 MG/ML 10 ml SYRINGE FS ONE (09:50)
[2019-08-22] MEDS ORDERED: PROPOFOL 200 MG/20 ML VIAL ONE (09:50)
[2019-08-22] MEDS ORDERED: Lidocaine 1% PF 5 ML VIAL ONE (09:50)
[2019-08-22] MEDS ORDERED: Dexamethasone 20 MG/5 ML VIAL ONE (09:50)
--- NOTE | 2019-08-22 10:35 | PRG ---
DATE OF SERVICE: 08/22/2019 SUBJECTIVE: Ms. Howell overall is continuing to have right upper quadrant pain much of the day. She said she just does not feel well at all. She is not having any chest pain, not short of breath. OBJECTIVE: VITAL SIGNS: Her blood pressure 122/65 and pulse 68, it is regular. LUNGS: Clear. CARDIAC: Normal S1. Normal S2. ABDOMEN: Soft and nontender. EXTREMITIES: There is no edema. DIAGNOSTIC DATA: EKG yesterday continue to show right bundle-branch block with T-wave inversion, but the T-wave inversion had improved from last week. ASSESSMENT: 1. Symptomatic gallstones with continued pain. 2. Single-vessel coronary artery disease, medical therapy the only realistic option. 3. Chronic atrial fibrillation. 4. Previous pacemaker. PLAN: Proceed with surgery as is being planned, intermediate risk. I have reviewed the ongoing pain and it seems essential that this be done in terms of having her gallbladder removed. Long-term prognosis guarded. We will continue to follow with you. Job ID: [id number]
[2019-08-22] MEDS: Insulin Glargine 16 UNITS in Pre-Filled Syringe 1 EACH SC SCH ×2 (11:35→20:47)
[2019-08-22] MEDS ORDERED: Bupivacaine 0.25% HCL 30 ML VIAL ONE (11:52)
[2019-08-22] MEDS ORDERED: Lidocaine 1% w/Epinephrine 1:100K 20 ML VIAL ONE (11:52)
[2019-08-22] MEDS ORDERED: Fentanyl 250 MCG/5 ML VIAL ONE (12:23)
[2019-08-22] MEDS ORDERED: Midazolam HCl 2 mg/2 ml Vial ONE (12:23)
[2019-08-22] MEDS ORDERED: Fentanyl 100 MCG/2 ML VIAL SLOW IVP PRN ×2 (13:18)
[2019-08-22] MEDS: Empagliflozin 10 MG TAB PO SCH (13:32)
[2019-08-22] MEDS ORDERED: Fentanyl 100 MCG/2 ML VIAL ONE (13:44)
--- NOTE | 2019-08-22 13:59 | OP ---
DATE OF PROCEDURE: 08/22/2019 PREOPERATIVE DIAGNOSIS: Acute cholecystitis. POSTOPERATIVE DIAGNOSIS: Acute cholecystitis. PROCEDURE PERFORMED: Laparoscopic cholecystectomy. ANESTHESIA: General. ESTIMATED BLOOD LOSS: None. COMPLICATIONS: None. SPECIMEN: Gallbladder. FINDINGS: Cholecystitis. PROCEDURE IN DETAIL: The patient was taken to the operating room and laid supine on the operating room table. After general anesthetic was obtained, the abdomen was prepped and draped in a sterile fashion. A curved incision was made below the umbilicus. Cautery was used to dissect down to the umbilical fascia. Umbilical fascia was incised and held up using a Jonelle. The abdominal cavity was entered using a Arely clamp. Holding stitch of Vicryl was placed on each side of the fascia. Pelaez trocar was placed. High-flow pneumoperitoneum was obtained. An upper midline 5 mm port and 2 right upper quadrant 5 mm ports were placed under direct camera visualization. The gallbladder was retracted from the gallbladder fossa. The peritoneum of the gallbladder was opened anteriorly and posteriorly. The critical view triangle was seen showing only the cystic duct and cystic artery branching from medial to lateral. There were no other branching structures. Two clips were placed proximally on the cystic duct and one laterally. It was cut using laparoscopic scissors. The cystic artery was taken in the same way. Electrocautery was then used to dissect the gallbladder out of the gallbladder fossa. The gallbladder was placed in an Endo catch bag and brought out through the Pelaez. There was no bleeding or bile in the liver bed. The cystic duct stump and cystic artery stump were intact, without evidence of extravasation or bleeding. All port sites were infiltrated using local anesthesia. All ports were removed under camera visualization. Pneumoperitoneum was let down. The Vicryl was used to close the fascial defect below the umbilicus. All incisions were irrigated and closed using 4-0 Monocryl and Dermabond. The patient was en route to Recovery in stable condition. All instrument counts, needle counts and lap counts were correct. Job ID: [id number]
[2019-08-22] MEDS: Polyethylene Glycol 3350 17 GM Packet PO SCH (14:29)
[2019-08-22] MEDS: Simethicone Chewable 80 MG TAB PO SCH ×2 (14:34→20:12)
[2019-08-22] MEDS ORDERED: CEFAZOLIN 2 GM in Premix Bag 1 BAG IVPB SCH (14:45)
[2019-08-22] MEDS: Sodium Chloride 0.9% 1,000 ML IV SCH (15:12)
[2019-08-22] MEDS: Lactated Ringer's 1,000 ML IV SCH (16:18)
[2019-08-22] MEDS ORDERED: Potassium Chloride 20 MEQ TAB PO SCH (17:00)
[2019-08-22] MEDS: Ezetimibe 10 MG TAB PO SCH (20:11)
[2019-08-22] MEDS: Gabapentin 300 MG CAP PO SCH (20:12)
[2019-08-22] MEDS ORDERED: Morphine 2 MG/ML SYRINGE SLOW IVP SCH (22:15)
[2019-08-23] MEDS: traMADol HCl 50 MG TAB PO PRN (02:39)
[2019-08-23] MEDS: Lactated Ringer's 1,000 ML IV SCH (05:11)
--- NOTE | 2019-08-23 06:08 | PDOC.FM ---
- Subjective Subjective: Patient is feeling quite a bit better this AM. Her abdomen is sore; but she states her original pain is totally resolved. Ate pudding last night due to pain. Has ordered breakfast this morning. Denies SOB. - Objective MAR Reviewed: Yes Vital Signs & Weight: Vital Signs (12 hours) Temp Pulse Resp BP Pulse Ox 08/23/19 03:49 97.8 F 72 18 117/58 L 98 08/22/19 19:35 98.7 F 70 16 115/58 L 98 Weight Admit Weight 108 kg Weight 106.141 kg I&O: 08/21/19 08/22/19 08/23/19 06:59 06:59 06:59 Intake Total 2810 1920 1080 Balance 2810 1920 1080 Result Diagrams: 08/23/19 10:12 08/23/19 10:12 Phys Exam - Physical Examination Constitutional: NAD Respiratory: no wheezing, clear to auscultation bilateral Cardiovascular: RRR Gastrointestinal: soft, no distention, positive bowel sounds moderately tender in RUQ, soreness, lap incisions c/d/i no drainage Musculoskeletal: no edema Psychiatric: normal affect, A&O x 3 Dx/Plan (1) Cholelithiasis Code(s): K80.20 - CALCULUS OF GALLBLADDER W/O CHOLECYSTITIS W/O OBSTRUCTION Status: Acute (2) Atrial fibrillation Code(s): I48.91 - UNSPECIFIED ATRIAL FIBRILLATION Status: Acute (3) CKD (chronic kidney disease) stage 2, GFR 60-89 ml/min Code(s): N18.2 - CHRONIC KIDNEY DISEASE, STAGE 2 (MILD) Status: Chronic (4) DMII (diabetes mellitus, type 2) Status: Chronic Qualifiers: Diabetes mellitus senior care insulin use: with senior care use Diabetes mellitus complication status: with kidney complications Diabetes mellitus complication detail: with chronic kidney disease Chronic kidney disease stage : stage 2 (mild) Qualified Code(s): E11.22 - Type 2 diabetes mellitus with diabetic chronic kidney disease; N18.2 - Chronic kidney disease, stage 2 (mild) ; Z79.4 - USP (current) use of insulin (5) HTN (hypertension) Code(s): I10 - ESSENTIAL (PRIMARY) HYPERTENSION Status: Chronic Qualifiers: Hypertension type: essential hypertension Qualified Code(s): I10 - Essential (primary) hypertension (6) Hypothyroidism Code(s): E03.9 - HYPOTHYROIDISM, UNSPECIFIED Status: Chronic Qualifiers: Hypothyroidism type: unspecified Qualified Code(s): E03.9 - Hypothyroidism , unspecified (7) Systolic and diastolic CHF, chronic Code(s): I50.42 - CHRONIC COMBINED SYSTOLIC AND DIASTOLIC HRT FAIL Status: Chronic - Plan Plan: Rebeca Howell is a 74 year old F with a PMH of A fib, HTN, DM2, Hypothyroidism who presented to the ED with a 1-2 day history of indigestion, nausea and a couple episodes of vomiting today. 1. Cholelithiasis with Intractable Nausea & Vomiting - s/p lap ela 08/21. - regular diet today - awaiting post-op labs this AM 2. Elevated Troponin w/ dyspnea, improved - cardiology consult, appreciate recs. 3. Hypokalemia, Resolved - Continue home medication Potassium chloride 4. CHF Combined Systolic/Diastolic Continue home medications - Strict I&Os 4. Elevated Alk Phos, Resolved - monitor 5. DMII Continue home medications * SSI * Accuchecks ACHS 6. Hx of EVELYN and does not wear cpap Code Status: Full Diet: HH IVF: SL Activity: Ambulate with Assist, PT & OT consulted PCP: [facility] Dispo: Tele inpt, LOS >48H. Anticipate d/c as long as stable from surgical and cardiac standpoint and tolerates diet this. AM Addendum - Attending - Attending Attestation Date/Time: 08/23/19 [id number] I personally evaluated the patient and discussed the management with Dr. Alston. I agree with the History, Examination, Assessment and Plan documented above with any addition or exceptions noted below. Patient improved. S/P Cholecystectomy. Awaiting clearance from Cardiology and GenSurg, will ADAT. Hopeful home in the next day or so.
[2019-08-23] MEDS: Sacubitril 49 MG/Valsartan 51 MG TABLET PO SCH (09:05)
[2019-08-23] MEDS: Simethicone Chewable 80 MG TAB PO SCH (09:12)
[2019-08-23] MEDS: Aspirin 81 mg Enteric Coated Tablet PO SCH (09:12)
[2019-08-23] MEDS: PARoxetine 20 MG TAB PO SCH (09:12)
[2019-08-23] MEDS: Oxybutynin 5 MG TAB PO SCH (09:12)
[2019-08-23] MEDS: Allopurinol 300 MG TAB PO SCH (09:13)
[2019-08-23] MEDS: Famotidine 20 MG TAB PO SCH (09:13)
[2019-08-23] MEDS: Carvedilol 3.125 MG TAB PO SCH (09:13)
[2019-08-23] MEDS: Empagliflozin 10 MG TAB PO SCH (09:15)
[2019-08-23] MEDS: Insulin Glargine 16 UNITS in Pre-Filled Syringe 1 EACH SC SCH (09:21)
[2019-08-23] MEDS: Polyethylene Glycol 3350 17 GM Packet PO SCH (09:24)
[2019-08-23] MEDS: Acetaminophen 325 MG TAB PO PRN (09:33)
[2019-08-23 10:26] LABS: Hemoglobin 13.3 g/dL (12.0-16.0); Mean Corpuscular HGB CONC 33.2 g/dL (32.0-36.0); Mean Corpuscular Hemoglobin 30.6 pg (27.0-31.0); Mean Corpuscular Volume 92.2 fL (78.0-98.0); Platelet Count 230 thou/uL (130-400); Red Blood Cell (RBC) Count 4.33 mill/uL (4.20-5.40); White Blood Cell (WBC) Count 21.7 thou/uL (4.8-10.8)
[2019-08-23 10:48] LABS: ALT (SGPT) 37 U/L (8-55); AST (SGOT) 65 U/L (5-34); Alkaline Phosphatase 123 U/L (40-110); Anion Gap 22 mmol/L (10-20); BUN (Urea Nitrogen) 10 mg/dL (9.8-20.1); Calc. Creatinine Clearance 81 mL/min (70-130); Calcium 9.2 mg/dL (7.8-10.44); Carbon Dioxide 15 mmol/L (23-31); Chloride 104 mmol/L (98-107); Estimated GFR-MDRD 54; Globulin 3.1 g/dL (2.4-3.5); Glucose 236 mg/dL (83-110); Potassium 4.4 mmol/L (3.5-5.1); Protein, Total 6.1 g/dL (6.0-8.3); Sodium 137 mmol/L (136-145)
[2019-08-23 11:03] LABS: Band 33 % (5-11); Lymphocytes 2 % (21-51); MDiff Complete? YES; Monocytes 4 % (0-10); Neutrophil 56 % (42-75); Reactive Lymphocytes 5 % (0-10)
--- NOTE | 2019-08-23 11:24 | PRG ---
DATE OF SERVICE: SUBJECTIVE: Ms. Howell is feeling much better. She is not nauseated. I spoke with Dr. Lo. He indicated the gallbladder did look edematous and inflamed at the time of surgery. She has no chest pain. OBJECTIVE: VITAL SIGNS: Her blood pressure is 130/60 and pulse is 70, it is paced. LUNGS: Clear. CARDIAC: Normal S1 and S2. ABDOMEN: I do not palpate, she is tender from the surgery yesterday. EXTREMITIES: Warm and dry. ASSESSMENT: 1. Status post cholecystectomy for cholecystitis. 2. Coronary artery disease with ostial diagonal lesion. 3. Postoperative status. PLAN: I spoke with Dr. Lo. We will give her a dose of Lovenox tonight at somewhat reduced dose and then resume Eliquis tomorrow. The reason this is being done is the longstanding persistent atrial fibrillation. ADDENDUM: The current plan is for the patient to be released home. Therefore, we will not give her Lovenox tonight. We will resume Eliquis tomorrow. I did discuss that with Dr. Lo. From a cardiac standpoint, she appears stable and is stable to be released home. Job ID: [id number]
--- NOTE | 2019-08-23 11:30 | PRG ---
DATE OF SERVICE: 08/23/2019 SUBJECTIVE: Postop day 1, laparoscopic cholecystectomy. Ms. Howell is doing well. Her pain is resolved . Her nausea has resolved. She feels weak and she is having some incisional pain. OBJECTIVE: VITAL SIGNS: She is afebrile. Vital signs are stable. ABDOMEN: Soft. Wounds are healing well. ASSESSMENT: Acute cholecystitis, postop day 1 laparoscopic cholecystectomy. PLAN: Discussed with Dr. Ruano. She is going to get prophylactic Lovenox today followed by restart of Eliquis tomorrow. She can be discharged home tomorrow. I would like to see her back in my office in 2 weeks. She takes extended-release tramadol at home. She can use oral Tylenol p.r.n. in addition to that. Job ID: [id number]
[2019-08-23 12:18] VITALS: BP 121/58; TEMP 98.6
[2019-08-23 14:10] VITALS: BMI 39.3
--- NOTE | 2019-08-23 17:52 | DIS ---
DATE OF ADMISSION: 08/17/2019 DATE OF DISCHARGE: 08/23/2019 RESIDENT: Amber Alston MD. ADMITTING ATTENDING: Dr. Moreland. DISCHARGE ATTENDING: Dr. Benavides. CONSULTS: 1. Cardiology, Dr. Ruano. 2. General Surgery, Dr. Lo. PROCEDURES: 1. Laparoscopic cholecystectomy on 08/22/2019. 2. Chest x-ray. 3. Abdomen and pelvis CT showing a small hiatal hernia and multiple gallstones without CT evidence for acute cholecystitis. 4. Right upper quadrant ultrasound showing multiple cholelithiasis without evidence for acute cholecystitis and heterogeneous liver echogenicity. Evidence for some fatty change. 5. Echocardiogram which showed ejection fraction visually estimated at 55% to 60 %, pacer wire visualized in right ventricle. Mildly dilated left atrium. Mild mitral regurg and mild tricuspid regurg. PRIMARY DIAGNOSES: 1. Cholelithiasis with intractable nausea and vomiting. 2. Hypokalemia. SECONDARY DIAGNOSES: 1. Combined systolic and diastolic heart failure. 2. Elevated alkaline phosphatase. 3. Type 2 diabetes. 4. History of obstructive sleep apnea and does not wear a CPAP. DISCHARGE MEDICATIONS: 1. Aspirin 81 p.o. daily. 2. MiraLAX 17 g p.o. daily. 3. Allopurinol 300 mg p.o. daily. 4. Eliquis 5 mg oral p.o. daily. 5. Lasix 40 mg p.o. b.i.d. 6. Potassium chloride 20 mEq p.o. b.i.d. 7. Gabapentin 300 mg p.o. at bedtime. 8. Levemir 16 units subcutaneously twice daily. 9. Zetia 10 mg p.o. at bedtime. 10. Jardiance 10 mg p.o. daily. 11. Oxybutynin 5 mg p.o. daily p.r.n. for bladder spasms. 12. Carvedilol 3.125 mg p.o. twice daily. 13. Tramadol 200 mg p.o. at bedtime. 14. Entresto one tab p.o. twice daily. 15. Vitamin D3 5000 units p.o. daily. 16. Paroxetine 40 mg p.o. daily. 17. Humalog 4 times daily as needed. DISCONTINUED MEDICATIONS: None. HISTORY OF PRESENT ILLNESS AND HOSPITAL COURSE: Rebeca Blacklock is a 74-year- old female with past history of atrial fibrillation, hypertension, type 2 diabetes, and hypothyroidism, who presents to the emergency room with 1- to 2-day history of indigestion, nausea, vomiting, and abdominal pain. She says that she has had a decreased appetite over the past 5 to 6 weeks and has lost 15 to 20 pounds since then. She endorses right upper quadrant abdominal pain after eating large meals. She had a HIDA scan that was normal about 15 years ago. She says ranitidine helps her pain. She was given 4 mg of Zofran and 1 L of normal saline in the ER. On labs, she was found to have low potassium of 3.1, and this was replaced. Urinalysis showed high glucose, but she is on Jardiance. Her blood sugars remained relatively well controlled while she was hospitalized. Due to her significant cardiac disease, Cardiology was consulted for cardiac clearance in order to have surgery to remove her gallbladder. Cardiology ultimately did give their clearance, and General Surgery did proceed with laparoscopic cholecystectomy. The patient's pain was markedly improved after her gallbladder was removed. She ate well the day after surgery and was stable from both the general surgeon's and senior manager quality assurance's point of view. DISPOSITION: Stable. DISCHARGE LOCATION: Home. DIET: Heart healthy and diabetic diet. ACTIVITY: As tolerated and per General Surgery's restrictions postoperatively. FOLLOWUP: Follow up with primary care provider in 7 days, with the senior manager quality assurance in 2 to 3 weeks, and with General Surgery in 14 days. Job ID: [id number] MTDD
[2019-08-23] MEDS ORDERED: Enoxaparin Sodium 40 MG/0.4 ML SYRINGE SC SCH (21:00)
[2019-08-24] MEDS ORDERED: Apixaban 5 MG TAB PO SCH (09:00)
--- NOTE | 2019-08-25 13:52 | EKG ---
Test Reason : Blood Pressure : / mmHG Vent. Rate : 070 BPM Atrial Rate : 068 BPM P-R Int : 000 ms QRS Dur : 174 ms QT Int : 540 ms P-R-T Axes : 000 136 081 degrees QTc Int : 583 ms Ventricular-paced rhythm Abnormal ECG Confirmed by RAUDEL FELIPE M.D. ([id number]), assistant production editor YAHIR MEREDITH ([id number] on 08/25/2019 1:52:01 PM Referred By: Confirmed By:RAUDEL FELIPE M.D.
== END 2019-08-23 14:56 | disposition home or self-care (01) | DRG 417 ==
LOC: ERS 12:30 → 2SW 17:06 → OBSVTOIN 17:06 → 2NO 08-19 13:56
PROVIDERS: ADMIT Family Medicine; ATTEND Family Medicine
PROC: 0FT44ZZ Resection of Gallbladder, Percutaneous Endoscopic Approach (ICD-10-PCS; principal; 2019-08-22)
DX: K80.00 Calculus of gallbladder with acute cholecystitis without obstruction (principal); I21.4 Non-ST elevation (NSTEMI) myocardial infarction; I50.42 Chronic combined systolic (congestive) and diastolic (congestive) heart failure; I13.0 Hypertensive heart and chronic kidney disease with heart failure and stage 1 through stage 4 chronic kidney disease, or unspecified chronic kidney disease; I48.19 Other persistent atrial fibrillation; E87.6 Hypokalemia; G47.33 Obstructive sleep apnea (adult) (pediatric); N18.2 Chronic kidney disease, stage 2 (mild); E11.22 Type 2 diabetes mellitus with diabetic chronic kidney disease; I08.0 Rheumatic disorders of both mitral and aortic valves; F41.9 Anxiety disorder, unspecified; Z96.653 Presence of artificial knee joint, bilateral; E03.9 Hypothyroidism, unspecified; F32.9 Major depressive disorder, single episode, unspecified; E66.9 Obesity, unspecified; I25.10 Atherosclerotic heart disease of native coronary artery without angina pectoris; G89.29 Other chronic pain; Z79.01 Long term (current) use of anticoagulants; Z95.0 Presence of cardiac pacemaker; Z98.51 Tubal ligation status; Z88.2 Allergy status to sulfonamides; Z88.8 Allergy status to other drugs, medicaments and biological substances; Z68.39 Body mass index [BMI] 39.0-39.9, adult
CPT/HCPCS: 36415; 36416; 71045; 74177; 76705; 80053; 81003; 83605; 83690; 83880; 84484; 85025; 87804; 88304; 93005; 93010; 93306; 96361; 96374; J0690; J1100; J1650; J1815; J2001; J2250; J2270; J2405; J2704; J3010; Q0162; Q9967; S0020

== ENCOUNTER 2019-12-18 11:32 | Outpatient (CLI) | payer MEDICARE ==
--- NOTE | 2019-12-18 12:06 | CT ---
CT BRAIN NONCONTRAST: DATE: 12/18/2019 HISTORY: 74-year-old female with unspecified fall, initial encounter. Persistent posttraumatic headache. FINDINGS: There is no evidence of acute intra-axial or extra-axial hemorrhage. There is no midline shift or any other mass effect. There is no extra-axial fluid collection. There is no evidence of obstructive hydrocephalus. Calvarium is intact. IMPRESSION: No acute intracranial findings.
== END 2019-12-18 11:33 | disposition home or self-care (01) ==
LOC: CT 11:32
PROVIDERS: ATTEND Internal Medicine Cardiovascular Disease
DX: W19.XXXA Unspecified fall, initial encounter (principal)
CPT/HCPCS: 70450

== ENCOUNTER 2021-05-15 01:50 | Observation (INO) | payer MEDICARE ==
[2021-05-15 02:52] LABS: #Eosinphils 0.1 thou/uL (0.0-0.7); #Lymphocytes 2.6 thou/uL (1.20-3.40); #Monocytes 0.5 thou/uL (0.11-0.59); #Neutrophils 6.6 thou/uL (1.40-6.50); %Basophils 0.4 % (0.0-1.0); %Eosinophils 1.1 % (0.0-10.0); %Lymphocytes 26.5 % (21.0-51.0); %Monocytes 5.2 % (0.0-10.0); %Neutrophils 66.8 % (42.0-75.0); Hemoglobin 14.3 g/dL (12.0-16.0); Mean Corpuscular HGB CONC 34.1 g/dL (32.0-36.0); Mean Corpuscular Hemoglobin 31.6 pg (27.0-31.0); Mean Corpuscular Volume 92.7 fL (78.0-98.0); Mean Platelet Volume 8.8 fL (7.4-10.4); Platelet Count 265 thou/uL (130-400); RBC Distribution Width 13.4 % (11.5-14.5); Red Blood Cell (RBC) Count 4.52 mill/uL (4.20-5.40); White Blood Cell (WBC) Count 9.9 thou/uL (4.8-10.8)
[2021-05-15 03:08] LABS: ALT (SGPT) 11 U/L (8-55); AST (SGOT) 28 U/L (5-34); Albumin 3.7 g/dL (3.4-4.8); Alkaline Phosphatase 127 U/L (40-110); Anion Gap 20 mmol/L (10-20); BUN (Urea Nitrogen) 11 mg/dL (9.8-20.1); Bilirubin, Total 1.3 mg/dL (0.2-1.2); Calc. Creatinine Clearance 0 mL/min (70-130); Carbon Dioxide 20 mmol/L (23-31); Chloride 102 mmol/L (98-107); Globulin 3.5 g/dL (2.4-3.5); Glucose 87 mg/dL (83-110); Lipase 10 U/L (8-78); Potassium 3.2 mmol/L (3.5-5.1); Protein, Total 7.2 g/dL (5.8-8.1); Sodium 139 mmol/L (136-145)
[2021-05-15] MEDS ORDERED: cefTRIAXone\\ROCEPHIN 1 GM VIAL ONE (04:48)
[2021-05-15 05:11] LABS: SARS-CoV-2 NAA Rapid Test Not Detected (NotDetected)
[2021-05-15 05:51] LABS: Lactic Acid 1.9 mmol/L (0.5-2.2)
[2021-05-15] MEDS ORDERED: Acetaminophen 325 MG TAB PO PRN (07:40)
[2021-05-15] MEDS ORDERED: Dextrose 50% Abboject 50 ML SYRINGE SLOW IVP PRN (08:24)
[2021-05-15] MEDS ORDERED: Dextrose 5% in Water 1,000 ML IV PRN (08:24)
[2021-05-15] MEDS ORDERED: HumaLOG 300 UNITS/3 ML VIAL SC PRN (08:24)
[2021-05-15] MEDS ORDERED: Aspirin 81 mg Enteric Coated Tablet PO SCH (09:00)
[2021-05-15] MEDS ORDERED: Lantus 1000 UNITS/10 ML VIAL SC SCH (09:00)
[2021-05-15] MEDS ORDERED: Apixaban 5 MG TAB PO SCH (09:00)
[2021-05-15] MEDS ORDERED: Sacubitril 49 MG/Valsartan 51 MG TABLET PO SCH (09:00)
[2021-05-15 09:26] VITALS: BMI 35.8
[2021-05-15 09:30] LABS: Troponin I Less than 0.010 ng/mL (< 0.028)
[2021-05-15] MEDS ORDERED: FLU VACC QS2021-22(65YR UP)/PF 240 MCG/0.7 ML SYRINGE IM ONE (09:45)
[2021-05-15] MEDS ORDERED: Oxybutynin 5 MG TAB PO PRN (09:52)
[2021-05-15 12:17] VITALS: BP 133/61; TEMP 97.6
[2021-05-15] MEDS ORDERED: Furosemide 40 MG TAB PO SCH (14:00)
[2021-05-15] MEDS ORDERED: Potassium Chloride 20 MEQ TAB PO SCH (17:00)
[2021-05-15] MEDS ORDERED: Tramadol Hcl [Tramadol Hcl Er] 200 MG Tab.Er.24h PO SCH (21:00)
[2021-05-15] MEDS ORDERED: Ezetimibe 10 MG TAB PO SCH (21:00)
[2021-05-15] MEDS ORDERED: Gabapentin 300 MG CAP PO SCH (21:00)
[2021-05-16] MEDS ORDERED: Cholecalciferol 1,000 UNITS (25 MCG) TAB PO SCH (09:00)
[2021-05-16] MEDS ORDERED: Allopurinol 300 MG TAB PO SCH (09:00)
[2021-05-16] MEDS ORDERED: Spironolactone 25 MG TAB PO SCH (09:00)
== END 2021-05-15 16:04 | disposition home or self-care (01) ==
LOC: ERS 01:50 → 2SW 06:13
PROVIDERS: ADMIT Emergency Medicine; ATTEND Emergency Medicine
DX: I95.9 Hypotension, unspecified (principal); I11.0 Hypertensive heart disease with heart failure; I50.30 Unspecified diastolic (congestive) heart failure; E86.9 Volume depletion, unspecified; E11.9 Type 2 diabetes mellitus without complications; I48.91 Unspecified atrial fibrillation; E03.9 Hypothyroidism, unspecified; G47.33 Obstructive sleep apnea (adult) (pediatric); E78.5 Hyperlipidemia, unspecified; B37.9 Candidiasis, unspecified; I08.2 Rheumatic disorders of both aortic and tricuspid valves; G89.29 Other chronic pain; M54.9 Dorsalgia, unspecified; M10.9 Gout, unspecified; Z79.01 Long term (current) use of anticoagulants; Z79.4 Long term (current) use of insulin; Z79.899 Other long term (current) drug therapy; Z88.2 Allergy status to sulfonamides; Z91.048 Other nonmedicinal substance allergy status; Z91.038 Other insect allergy status; Z95.0 Presence of cardiac pacemaker; Z20.822 Contact with and (suspected) exposure to COVID-19
CPT/HCPCS: 71045; 80053; 82962; 83605; 83690; 83880; 84484 ×2; 85025; 87040; 93005; 93306; U0002; 36415; 36416; G0378; J0696; J1815

== ENCOUNTER 2021-07-12 13:24 | Inpatient (IN) | payer MEDICARE ==
[~2021-07-12 13:24] MED LIST: Iopamidol 370 76% 100 ML VIAL ONE
[2021-07-12 14:13] LABS: #Basophils 0.1 thou/uL (0.0-0.2); #Eosinphils 0.6 thou/uL (0.0-0.7); #Lymphocytes 1.8 thou/uL (1.20-3.40); #Monocytes 0.4 thou/uL (0.11-0.59); #Neutrophils 7.4 thou/uL (1.40-6.50); %Eosinophils 5.8 % (0.0-10.0); %Lymphocytes 17.2 % (21.0-51.0); %Monocytes 3.8 % (0.0-10.0); %Neutrophils 72.2 % (42.0-75.0); Hemoglobin 15.4 g/dL (12.0-16.0); Mean Corpuscular HGB CONC 32.1 g/dL (32.0-36.0); Mean Corpuscular Hemoglobin 31.4 pg (27.0-31.0); Mean Corpuscular Volume 97.7 fL (78.0-98.0); Mean Platelet Volume 10.2 fL (7.4-10.4); Platelet Count 269 thou/uL (130-400); RBC Distribution Width 14.7 % (11.5-14.5); Red Blood Cell (RBC) Count 4.91 mill/uL (4.20-5.40); White Blood Cell (WBC) Count 10.3 thou/uL (4.8-10.8)
[2021-07-12 14:24] LABS: INR-International Normal Ratio 0.9; Prothrombin Time 12.7 sec (12.0-14.7)
[2021-07-12 15:44] LABS: ALT (SGPT) 827 U/L (8-55); AST (SGOT) 992 U/L (5-34); Albumin 3.4 g/dL (3.4-4.8); Alkaline Phosphatase 1129 U/L (40-110); Anion Gap 14 mmol/L (10-20); BUN (Urea Nitrogen) 13 mg/dL (9.8-20.1); Bilirubin, Total 8.1 mg/dL (0.2-1.2); Calc. Creatinine Clearance 0 mL/min (70-130); Calcium 9.5 mg/dL (7.8-10.44); Carbon Dioxide 26 mmol/L (23-31); Chloride 100 mmol/L (98-107); Globulin 3.6 g/dL (2.4-3.5); Glucose 255 mg/dL (83-110); Lipase 6 U/L (8-78); Sodium 136 mmol/L (136-145)
[2021-07-12] MEDS ORDERED: Piperacillin/Tazobactam 3.375 GM VIAL ONE (16:04)
[2021-07-12] MEDS ORDERED: Ondansetron PF 4 MG/2 ML Vial ONE (16:04)
[2021-07-12] MEDS ORDERED: Morphine 4 MG/ML VIAL ONE (16:04)
[2021-07-12] MEDS ORDERED: Ondansetron PF 4 MG/2 ML Vial IVP PRN (18:45)
[2021-07-12] MEDS ORDERED: Acetaminophen 325 MG TAB PO PRN ×3 (18:45→20:02)
[2021-07-12] MEDS ORDERED: Ondansetron ODT 4 MG TAB SL PRN (18:45)
[2021-07-12 18:58] VITALS: BMI 32.4
[2021-07-12] MEDS ORDERED: Ondansetron ODT 4 MG TAB PO PRN (19:41)
[2021-07-12] MEDS ORDERED: Dextrose 50% Abboject 50 ML SYRINGE SLOW IVP PRN (19:45)
[2021-07-12] MEDS ORDERED: HumaLOG 300 UNITS/3 ML VIAL SC PRN ×2 (19:45→20:15)
[2021-07-12] MEDS ORDERED: Dextrose 5% in Water 1,000 ML IV PRN (19:45)
[2021-07-12] MEDS ORDERED: Insulin Regular 300 UNITS/3 ML VIAL SC PRN (19:45)
[2021-07-12] MEDS ORDERED: Oxybutynin 5 MG TAB PO PRN (19:47)
[2021-07-12] MEDS ORDERED: diphenhydrAMINE 50 MG/ML VIAL IVP SCH (20:30)
[2021-07-12] MEDS ORDERED: Tramadol Hcl [Tramadol Hcl Er] 200 MG Tab.Er.24h PO SCH (21:00)
[2021-07-12] MEDS ORDERED: traMADol HCl 50 MG TAB PO SCH (21:15)
[2021-07-12] MEDS: Gabapentin 300 MG CAP PO SCH (21:24)
[2021-07-12] MEDS: Potassium Chloride 20 MEQ TAB PO SCH (21:24)
[2021-07-12] MEDS: Lantus 1000 UNITS/10 ML VIAL SC SCH (21:31)
[2021-07-12] MEDS: Lactated Ringer's 1,000 ML IV SCH (21:31)
[2021-07-12] MEDS ORDERED: Enoxaparin Sodium 40 MG/0.4 ML SYRINGE SC SCH (21:45)
[2021-07-12 23:37] LABS: SARS-CoV-2 PCR by NAA Not Detected (NotDetected)
[2021-07-13] MEDS: Ondansetron PF 4 MG/2 ML Vial IVP PRN ×3 (00:46→20:51)
[2021-07-13] MEDS ORDERED: Ibuprofen 200 MG TAB PO SCH (01:15)
[2021-07-13] MEDS: Lactated Ringer's 1,000 ML IV SCH ×4 (03:50→17:30)
[2021-07-13 06:27] LABS: #Basophils 0.1 thou/uL (0.0-0.2); #Eosinphils 0.5 thou/uL (0.0-0.7); #Monocytes 0.5 thou/uL (0.11-0.59); #Neutrophils 5.5 thou/uL (1.40-6.50); %Basophils 1.5 % (0.0-1.0); %Eosinophils 5.4 % (0.0-10.0); %Lymphocytes 23.1 % (21.0-51.0); %Monocytes 5.9 % (0.0-10.0); %Neutrophils 64.1 % (42.0-75.0); Hemoglobin 12.4 g/dL (12.0-16.0); Mean Corpuscular HGB CONC 31.4 g/dL (32.0-36.0); Mean Corpuscular Hemoglobin 30.7 pg (27.0-31.0); Mean Corpuscular Volume 97.8 fL (78.0-98.0); Mean Platelet Volume 9.8 fL (7.4-10.4); Platelet Count 209 thou/uL (130-400); RBC Distribution Width 14.8 % (11.5-14.5); Red Blood Cell (RBC) Count 4.04 mill/uL (4.20-5.40); White Blood Cell (WBC) Count 8.6 thou/uL (4.8-10.8)
[2021-07-13 06:42] LABS: ALT (SGPT) 618 U/L (8-55); AST (SGOT) 755 U/L (5-34); Albumin 2.8 g/dL (3.4-4.8); Alkaline Phosphatase 1051 U/L (40-110); Anion Gap 12 mmol/L (10-20); BUN (Urea Nitrogen) 14 mg/dL (9.8-20.1); Bilirubin, Total 8.1 mg/dL (0.2-1.2); Calc. Creatinine Clearance 96 mL/min (70-130); Calcium 8.7 mg/dL (7.8-10.44); Carbon Dioxide 26 mmol/L (23-31); Chloride 105 mmol/L (98-107); Glucose 164 mg/dL (83-110); Protein, Total 5.8 g/dL (5.8-8.1); Sodium 139 mmol/L (136-145)
[2021-07-13] MEDS: Gabapentin 300 MG CAP PO SCH ×2 (08:27→20:45)
[2021-07-13] MEDS: Potassium Chloride 20 MEQ TAB PO SCH ×2 (08:28→20:45)
[2021-07-13] MEDS: Cholecalciferol 1,000 UNITS (25 MCG) TAB PO SCH (08:28)
[2021-07-13] MEDS: Ursodiol 300 MG CAP PO SCH ×2 (08:28→11:28)
[2021-07-13] MEDS: Lantus 1000 UNITS/10 ML VIAL SC SCH ×2 (08:29→20:46)
[2021-07-13] MEDS ORDERED: Furosemide 40 MG TAB PO SCH (09:00)
[2021-07-13] MEDS: Furosemide 20 MG/2 ML VIAL SLOW IVP SCH (14:07)
[2021-07-13] MEDS: Morphine 4 MG/ML VIAL SLOW IVP PRN ×2 (16:30→22:49)
[2021-07-13] MEDS: HumaLOG 300 UNITS/3 ML VIAL SC PRN (20:46)
[2021-07-13] MEDS: Pantoprazole 40 MG VIAL IVP SCH (20:46)
[2021-07-13] MEDS ORDERED: diphenhydrAMINE 50 MG/ML VIAL IVP SCH (21:45)
[2021-07-14] MEDS: Lactated Ringer's 1,000 ML IV SCH ×2 (03:39→21:14)
[2021-07-14] MEDS: Furosemide 20 MG/2 ML VIAL SLOW IVP SCH ×2 (05:33→14:09)
[2021-07-14] MEDS: Ondansetron PF 4 MG/2 ML Vial IVP PRN (05:45)
[2021-07-14 06:44] LABS: #Basophils 0.1 thou/uL (0.0-0.2); #Eosinphils 0.4 thou/uL (0.0-0.7); #Monocytes 0.5 thou/uL (0.11-0.59); #Neutrophils 5.1 thou/uL (1.40-6.50); %Basophils 0.8 % (0.0-1.0); %Eosinophils 5.3 % (0.0-10.0); %Lymphocytes 24.4 % (21.0-51.0); %Monocytes 6.5 % (0.0-10.0); Hemoglobin 13.1 g/dL (12.0-16.0); Mean Corpuscular HGB CONC 33.2 g/dL (32.0-36.0); Mean Corpuscular Hemoglobin 31.9 pg (27.0-31.0); Platelet Count 205 thou/uL (130-400); RBC Distribution Width 14.7 % (11.5-14.5); Red Blood Cell (RBC) Count 4.13 mill/uL (4.20-5.40)
[2021-07-14 06:59] LABS: ALT (SGPT) 528 U/L (8-55); AST (SGOT) 608 U/L (5-34); Albumin 2.9 g/dL (3.4-4.8); Alkaline Phosphatase 1213 U/L (40-110); Anion Gap 14 mmol/L (10-20); BUN (Urea Nitrogen) 17 mg/dL (9.8-20.1); Bilirubin, Total 8.2 mg/dL (0.2-1.2); Calc. Creatinine Clearance 86 mL/min (70-130); Calcium 8.8 mg/dL (7.8-10.44); Carbon Dioxide 29 mmol/L (23-31); Chloride 98 mmol/L (98-107); Globulin 3.2 g/dL (2.4-3.5); Glucose 196 mg/dL (83-110); Potassium 3.7 mmol/L (3.5-5.1); Protein, Total 6.1 g/dL (5.8-8.1); Sodium 137 mmol/L (136-145)
[2021-07-14] MEDS: Cholecalciferol 1,000 UNITS (25 MCG) TAB PO SCH (07:55)
[2021-07-14] MEDS: Gabapentin 300 MG CAP PO SCH ×2 (07:55→21:14)
[2021-07-14] MEDS: Lantus 1000 UNITS/10 ML VIAL SC SCH ×2 (07:55→21:08)
[2021-07-14] MEDS: Potassium Chloride 20 MEQ TAB PO SCH ×2 (07:56→20:58)
[2021-07-14] MEDS ORDERED: Empagliflozin 10 MG TAB PO SCH (09:00)
[2021-07-14] MEDS ORDERED: Fentanyl 250 MCG/5 ML VIAL ONE (09:00)
[2021-07-14] MEDS ORDERED: Indomethacin 50 MG SUPP ONE (09:29)
[2021-07-14] MEDS ORDERED: Iothalamate Meglumine 60% 50 ML VIAL FS ONE (09:30)
[2021-07-14] MEDS ORDERED: Rocuronium Bromide 10 MG/ML (10ML VIAL) ONE (09:48)
[2021-07-14] MEDS ORDERED: Ondansetron PF 4 MG/2 ML Vial ONE (09:48)
[2021-07-14] MEDS ORDERED: GLYCOPYRROLATE/PF 0.2 MG/ML VIAL ONE (09:48)
[2021-07-14] MEDS ORDERED: Lidocaine 1% PF 5 ML VIAL ONE (09:48)
[2021-07-14] MEDS ORDERED: Dexamethasone 20 MG/5 ML VIAL ONE (09:48)
[2021-07-14] MEDS ORDERED: PROPOFOL 200 MG/20 ML VIAL ONE (09:48)
[2021-07-14] MEDS: HumaLOG 300 UNITS/3 ML VIAL SC PRN ×2 (11:47→21:10)
[2021-07-14] MEDS: Morphine 4 MG/ML VIAL SLOW IVP PRN ×3 (11:50→20:56)
[2021-07-14] MEDS ORDERED: diphenhydrAMINE 50 MG/ML VIAL IVP SCH (19:15)
[2021-07-14] MEDS: Pantoprazole 40 MG VIAL IVP SCH (20:58)
[2021-07-14] MEDS ORDERED: traMADol HCl 50 MG TAB PO SCH (23:15)
[2021-07-15] MEDS: Furosemide 20 MG/2 ML VIAL SLOW IVP SCH ×2 (05:22→13:24)
[2021-07-15] MEDS: HumaLOG 300 UNITS/3 ML VIAL SC PRN ×3 (05:26→17:18)
[2021-07-15 08:21] LABS: #Lymphocytes 1.2 thou/uL (1.20-3.40); #Monocytes 0.5 thou/uL (0.11-0.59); #Neutrophils 12.8 thou/uL (1.40-6.50); %Basophils 0.3 % (0.0-1.0); %Eosinophils 0.2 % (0.0-10.0); %Lymphocytes 8.1 % (21.0-51.0); %Monocytes 3.3 % (0.0-10.0); %Neutrophils 88.1 % (42.0-75.0); Mean Corpuscular HGB CONC 30.5 g/dL (32.0-36.0); Mean Corpuscular Hemoglobin 30.1 pg (27.0-31.0); Mean Corpuscular Volume 98.5 fL (78.0-98.0); Mean Platelet Volume 10.5 fL (7.4-10.4); Platelet Count 232 thou/uL (130-400); RBC Distribution Width 15.6 % (11.5-14.5); Red Blood Cell (RBC) Count 4.32 mill/uL (4.20-5.40); White Blood Cell (WBC) Count 14.5 thou/uL (4.8-10.8)
[2021-07-15] MEDS: Gabapentin 300 MG CAP PO SCH ×2 (08:21→21:00)
[2021-07-15] MEDS: Cholecalciferol 1,000 UNITS (25 MCG) TAB PO SCH (08:22)
[2021-07-15] MEDS: Potassium Chloride 20 MEQ TAB PO SCH ×2 (08:22→21:02)
[2021-07-15] MEDS: Lantus 1000 UNITS/10 ML VIAL SC SCH ×2 (08:23→21:05)
[2021-07-15 08:38] LABS: ALT (SGPT) 362 U/L (8-55); AST (SGOT) 304 U/L (5-34); Albumin 2.8 g/dL (3.4-4.8); Alkaline Phosphatase 1058 U/L (40-110); Anion Gap 18 mmol/L (10-20); BUN (Urea Nitrogen) 27 mg/dL (9.8-20.1); Calc. Creatinine Clearance 72 mL/min (70-130); Calcium 8.9 mg/dL (7.8-10.44); Carbon Dioxide 20 mmol/L (23-31); Chloride 98 mmol/L (98-107); Globulin 3.4 g/dL (2.4-3.5); Glucose 409 mg/dL (83-110); Potassium 4.2 mmol/L (3.5-5.1); Protein, Total 6.2 g/dL (5.8-8.1); Sodium 132 mmol/L (136-145)
[2021-07-15] MEDS ORDERED: Empagliflozin 10 MG TAB PO SCH (09:30)
[2021-07-15] MEDS: Lactated Ringer's 1,000 ML IV SCH ×2 (10:50→22:38)
[2021-07-15] MEDS: Morphine 4 MG/ML VIAL SLOW IVP PRN ×2 (10:51→22:27)
[2021-07-15] MEDS ORDERED: diphenhydrAMINE 50 MG CAP PO PRN (11:29)
[2021-07-15] MEDS: Apixaban 5 MG TAB PO SCH (21:02)
[2021-07-16] MEDS: Lactated Ringer's 1,000 ML IV SCH ×2 (01:47→13:41)
[2021-07-16] MEDS: Furosemide 20 MG/2 ML VIAL SLOW IVP SCH ×2 (05:56→13:41)
[2021-07-16] MEDS: HumaLOG 300 UNITS/3 ML VIAL SC PRN ×3 (05:56→17:10)
[2021-07-16] MEDS ORDERED: Promethazine 25 MG TAB PO PRN (06:09)
[2021-07-16 06:11] LABS: #Basophils 0.1 thou/uL (0.0-0.2); #Eosinphils 0.1 thou/uL (0.0-0.7); #Lymphocytes 2.3 thou/uL (1.20-3.40); #Monocytes 0.9 thou/uL (0.11-0.59); #Neutrophils 9.4 thou/uL (1.40-6.50); %Basophils 0.6 % (0.0-1.0); %Eosinophils 0.9 % (0.0-10.0); %Lymphocytes 17.7 % (21.0-51.0); %Monocytes 6.7 % (0.0-10.0); %Neutrophils 74.1 % (42.0-75.0); Hemoglobin 12.1 g/dL (12.0-16.0); Mean Corpuscular HGB CONC 31.8 g/dL (32.0-36.0); Mean Corpuscular Hemoglobin 30.9 pg (27.0-31.0); Mean Corpuscular Volume 97.2 fL (78.0-98.0); Mean Platelet Volume 10.2 fL (7.4-10.4); Platelet Count 207 thou/uL (130-400); RBC Distribution Width 15.3 % (11.5-14.5); Red Blood Cell (RBC) Count 3.93 mill/uL (4.20-5.40); White Blood Cell (WBC) Count 12.7 thou/uL (4.8-10.8)
[2021-07-16] MEDS ORDERED: Labetalol HCl 100 MG/20 ML VIAL ONE (06:24)
[2021-07-16 06:35] LABS: ALT (SGPT) 326 U/L (8-55); AST (SGOT) 406 U/L (5-34); Albumin 2.6 g/dL (3.4-4.8); Alkaline Phosphatase 1076 U/L (40-110); Anion Gap 12 mmol/L (10-20); BUN (Urea Nitrogen) 28 mg/dL (9.8-20.1); Bilirubin, Total 4.9 mg/dL (0.2-1.2); Calc. Creatinine Clearance 80 mL/min (70-130); Calcium 8.9 mg/dL (7.8-10.44); Carbon Dioxide 28 mmol/L (23-31); Chloride 99 mmol/L (98-107); Globulin 2.9 g/dL (2.4-3.5); Glucose 288 mg/dL (83-110); Potassium 3.6 mmol/L (3.5-5.1); Protein, Total 5.5 g/dL (5.8-8.1); Sodium 135 mmol/L (136-145)
[2021-07-16] MEDS: Potassium Chloride 20 MEQ TAB PO SCH ×2 (08:25→21:32)
[2021-07-16] MEDS: Gabapentin 300 MG CAP PO SCH ×2 (08:25→21:32)
[2021-07-16] MEDS: Apixaban 5 MG TAB PO SCH ×2 (08:26→21:32)
[2021-07-16] MEDS: Cholecalciferol 1,000 UNITS (25 MCG) TAB PO SCH (08:26)
[2021-07-16] MEDS: Lantus 1000 UNITS/10 ML VIAL SC SCH ×2 (08:28→21:33)
[2021-07-16] MEDS ORDERED: Empagliflozin 10 MG TAB PO SCH (09:00)
[2021-07-16] MEDS ORDERED: Iopamidol 370 76% 100 ML VIAL ONE (09:48)
[2021-07-16] MEDS ORDERED: GASTROGRAFIN 30 ML BOT ONE (09:48)
[2021-07-16] MEDS: Morphine 4 MG/ML VIAL SLOW IVP PRN ×2 (12:32→21:31)
[2021-07-16] MEDS ORDERED: Senokot 8.6 MG TAB PO PRN (14:01)
[2021-07-16] MEDS ORDERED: Polyethylene Glycol 3350 17 GM Packet PO PRN (14:01)
[2021-07-16] MEDS ORDERED: Simethicone Chewable 80 MG TAB PO PRN (14:01)
[2021-07-16] MEDS: Ondansetron PF 4 MG/2 ML Vial IVP PRN (15:14)
[2021-07-17] MEDS: Lactated Ringer's 1,000 ML IV SCH ×2 (00:18→18:39)
[2021-07-17] MEDS: Furosemide 20 MG/2 ML VIAL SLOW IVP SCH ×2 (05:02→14:32)
[2021-07-17 06:31] LABS: #Basophils 0.1 thou/uL (0.0-0.2); #Eosinphils 0.3 thou/uL (0.0-0.7); #Lymphocytes 2.1 thou/uL (1.20-3.40); #Monocytes 0.7 thou/uL (0.11-0.59); #Neutrophils 6.1 thou/uL (1.40-6.50); %Basophils 0.7 % (0.0-1.0); %Eosinophils 3.5 % (0.0-10.0); %Lymphocytes 22.6 % (21.0-51.0); %Monocytes 7.3 % (0.0-10.0); %Neutrophils 65.8 % (42.0-75.0); Hemoglobin 11.9 g/dL (12.0-16.0); Mean Corpuscular HGB CONC 32.9 g/dL (32.0-36.0); Mean Corpuscular Hemoglobin 32.2 pg (27.0-31.0); Mean Platelet Volume 10.2 fL (7.4-10.4); Platelet Count 194 thou/uL (130-400); RBC Distribution Width 15.3 % (11.5-14.5); White Blood Cell (WBC) Count 9.2 thou/uL (4.8-10.8)
[2021-07-17 06:50] LABS: ALT (SGPT) 278 U/L (8-55); AST (SGOT) 280 U/L (5-34); Albumin 2.6 g/dL (3.4-4.8); Alkaline Phosphatase 889 U/L (40-110); Anion Gap 10 mmol/L (10-20); BUN (Urea Nitrogen) 20 mg/dL (9.8-20.1); Bilirubin, Total 3.2 mg/dL (0.2-1.2); Calc. Creatinine Clearance 96 mL/min (70-130); Calcium 8.4 mg/dL (7.8-10.44); Carbon Dioxide 29 mmol/L (23-31); Chloride 101 mmol/L (98-107); Globulin 2.9 g/dL (2.4-3.5); Glucose 142 mg/dL (83-110); Potassium 3.8 mmol/L (3.5-5.1); Protein, Total 5.5 g/dL (5.8-8.1); Sodium 136 mmol/L (136-145)
[2021-07-17 08:05] VITALS: BP 127/79; TEMP 98.2
[2021-07-17] MEDS: Cholecalciferol 1,000 UNITS (25 MCG) TAB PO SCH (09:23)
[2021-07-17] MEDS: Gabapentin 300 MG CAP PO SCH (09:23)
[2021-07-17] MEDS: Potassium Chloride 20 MEQ TAB PO SCH (09:24)
[2021-07-17] MEDS: Apixaban 5 MG TAB PO SCH (09:24)
[2021-07-17] MEDS: Lantus 1000 UNITS/10 ML VIAL SC SCH (09:26)
[2021-07-17] MEDS ORDERED: Ketorolac Tromethamine 30 MG/ML VIAL IVP SCH (11:00)
[2021-07-17] MEDS: Morphine 4 MG/ML VIAL SLOW IVP PRN (15:08)
== END 2021-07-17 18:07 | disposition home or self-care (01) | DRG 435 ==
LOC: ERS 13:24 → T4-A 17:37
PROVIDERS: ADMIT Family Medicine; ATTEND Family Medicine
PROC: 0F798DZ Dilation of Common Bile Duct with Intraluminal Device, Via Natural or Artificial Opening Endoscopic (ICD-10-PCS; principal; 2021-07-14)
PROC: 0FB98ZX Excision of Common Bile Duct, Via Natural or Artificial Opening Endoscopic, Diagnostic (ICD-10-PCS; 2021-07-14)
DX: C25.0 Malignant neoplasm of head of pancreas (principal); K83.1 Obstruction of bile duct; I13.0 Hypertensive heart and chronic kidney disease with heart failure and stage 1 through stage 4 chronic kidney disease, or unspecified chronic kidney disease; I50.42 Chronic combined systolic (congestive) and diastolic (congestive) heart failure; Z20.822 Contact with and (suspected) exposure to COVID-19; I48.91 Unspecified atrial fibrillation; K21.9 Gastro-esophageal reflux disease without esophagitis; E78.5 Hyperlipidemia, unspecified; M10.9 Gout, unspecified; G47.33 Obstructive sleep apnea (adult) (pediatric); H35.30 Unspecified macular degeneration; M54.50 Low back pain, unspecified; G89.29 Other chronic pain; E11.22 Type 2 diabetes mellitus with diabetic chronic kidney disease; N18.2 Chronic kidney disease, stage 2 (mild); E86.0 Dehydration; I25.10 Atherosclerotic heart disease of native coronary artery without angina pectoris; Z96.653 Presence of artificial knee joint, bilateral; R33.9 Retention of urine, unspecified; Z88.2 Allergy status to sulfonamides; Z91.048 Other nonmedicinal substance allergy status; Z79.899 Other long term (current) drug therapy; Z79.01 Long term (current) use of anticoagulants; Z79.4 Long term (current) use of insulin; Z95.0 Presence of cardiac pacemaker; Z90.49 Acquired absence of other specified parts of digestive tract; Z98.890 Other specified postprocedural states
CPT/HCPCS: 36415; 36416; 71045; 71260; 74177; 74330; 76705; 80053; 82248; 82378; 82943; 83605; 83690; 83880; 84484; 85025; 85610; 86301; 88104; 93005; 96374; 96375; C2617; C9113; J1100; J1200; J1650; J1815; J1885; J1940; J1956; J2270; J2405; J2543; J2704; J3010; J3490; J7120; Q0162; Q0169; Q9961-U8; Q9963; Q9967; U0003; U0005